=== PATIENT | female | born 1990 | race Caucasian/White ===

== ENCOUNTER 2016-03-23 15:05 | Outpatient (CLI) | payer MEDICAID ==
--- NOTE | 2016-03-23 15:51 | Non Stress Test Report ---
Non Stress Test Datetime Report Generated by CPN: 03/23/2016 15:51 DEMOGRAPHIC EGA NST: 32.1 INDICATION Indication for Study: Ordered by Provider MONITORING Monitor Explained: Monitor Explained; Test Explained; Patient Verbalized Understanding Time on Monitor: 03/23/2016 15:26 Time off Monitor: 03/23/2016 15:50 NST Duration: 24 NST INTERVENTIONS NST Interventions: None Physician Notified NST: A Emmel CNM BABY A: [id number] BABY A Movement : Present Contraction Frequency : none FHR Baseline : 135 Accelerations : 15X15 Decelerations : None Variability : Moderate 6-25bpm NST Review: Meets Criteria for Reactive NST NST Review and Verified By : Genet Torres RN NST Results: Reactive NST COMMENTS NST Comments: See flowsheet for VS NST REPORT Report Trigger: Send Report
[2016-03-23 15:57] LABS: APPEARANCE,URINE CLEAR; BILIRUBIN,URINE NEGATIVE (NEGATIVE); GLUCOSE, URINE NEGATIVE (NEGATIVE); KETONES,URINE NEGATIVE (NEGATIVE); LEUKOCYTE ESTERASE,URINE NEGATIVE (NEGATIVE); NITRITE,URINE NEGATIVE (NEGATIVE); PROTEIN,URINE NEGATIVE (NEGATIVE); URINE SPECIFIC GRAVITY 1.008; UROBILINOGEN,URINE NEGATIVE mg/dL (<2.0)
--- NOTE | 2016-03-23 16:00 | L&D Flow Sheet ---
LD Flowsheet Datetime Report Generated by CPN: 03/23/2016 16:00 Datetime: 03/23/2016 15:40 Patient Care Comments: Wet Prep Obtained. (Alvino Alyssa, RN) Datetime: 03/23/2016 15:30 Pain Pain Scale: 0 (Alvino Alyssa, RN) Pain Presence: None/Denies (Alvino Alyssa, RN) Vaginal Exam Vaginal Bleeding: None (Alvino Alyssa, RN) Maternal Assessment Level of Consciousness: Fully Conscious (Alvino Alyssa, RN) DTR's/Clonus: DTRs 2+; No Clonus (Alvino Alyssa, RN) Headache: Denies (Alvino Alyssa, RN) Breath Sounds, Left: Clear and Equal (Alvino Alyssa, RN) Breath Sounds, Right: Clear and Equal (Alvino Alyssa, RN) Nausea/Vomiting: Denies (Alvino Alyssa, RN) RUQ Epigastric Pain: Denies (Alvino Alyssa, RN) Patient Care Patient Position/Activity: Left Tilt (Alvino Shah RN) Comfort Measures: Patient coloring, no distress noted, no complaints. (Alvino Shah RN) I/O Interventions: Clear Liquids Given; Up to BR (Alvino Shah RN) Teaching Instructional Method: Demo; Verbal; Patient Instructed; Family/Support Person Instructed; Verbalized Understanding (Alvino Shah RN) Plan of Care: Plan of Care Discussed (Alvino Shah RN) Unit Routine: [place] to Room; Call Mckenzie; Bed; Visiting Policy; Waiting Areas; Security; Phone/Cell Phone Use; Unit Personnel; Handwashing; Monitoring; Safety/Fall Risk Prevention; Bathroom Privileges (Alvino Shah RN) Pain Management: Pain Scale/Goals; Comfort Measures (Alvino Shah RN) PTL/PROM: PTL Stimulating Activities; Hydration; Signs/Symptoms of Infection (Alvino Shah RN) Related: Common Discomforts of ; Maternal Physical Changes; Maternal Emotional Changes; Nutrition; Hydration; Activity and Rest (Alvino Alyssa, RN) Communication LaborFlag: Antepartum (QS system process) Datetime: 03/23/2016 15:26 Vital Signs NBP Sys/Kayla/Mean (mmHg): 104 (QS system process) : 59 (QS system process) : 77 (QS system process) Pulse: 103 (QS system process) Communication LaborFlag: Antepartum (QS system process)
[2016-03-23 16:03] LABS: AMNISURE (ROM) NEGATIVE (NEGATIVE)
[2016-03-23 16:13] LABS: URINE BARBITURATES SCREEN NEGATIVE; URINE METHADONE SCREEN NEGATIVE; URINE PHENCYCLIDINE SCREEN NEGATIVE
[2016-03-23 17:30] LABS: CHLAM PCR NOT DETECTED (NOT DETECT)
--- NOTE | 2016-03-24 04:47 | L&D Current Admission ---
Current Admit Datetime Report Generated by [facility]: 03/24/2016 04:45 ADMISSION INFORMATION Chief Complaint: Pt states she has been having lower abdominal cramping "below my hips" that comes and goes. Pt states this has been going on for 2 days. Pt also had a vaginal discharge that looked orange but she had taken Azo. Pt states she come into the ER at 1900 on 01/10 due to a migraine. States according to the internet she is having "cluster migraines". Pt says she has migraines when she is not but not this bad or consistent. Pt also c/o urinary urgency. (01/12/2016 03:48:Divina Orourke RN)
--- NOTE | 2016-03-24 04:47 | L&D General Admission ---
General Admit Datetime Report Generated by CPN: 03/24/2016 04:45 INFORMATION Patient Age: 23 (04/11/2014 12:02:QS system process) EDC: 05/17/2016 00:00 (01/12/2016 03:44:Divina Orourke RN) : 3 (01/12/2016 03:44:Divina Orourke RN) Para: 2 (01/12/2016 03:44:Divina Orourke RN) Term: 2 (01/12/2016 03:44:Divina Orourke RN) : 0 (01/12/2016 03:44:Divina Orourke RN) Spontaneous Abortions: 0 (01/12/2016 03:44:Divina Orourke RN) Induced Abortions: 0 (01/12/2016 03:44:Divina Orourke RN) Livin (01/12/2016 03:44:Divina Orourke RN) Cesareans: 0 (01/12/2016 03:44:Divina Orourke RN) VBACs: 0 (01/12/2016 03:44:Divina Orourke RN) Ectopic: 0 (01/12/2016 03:44:Divina Orourke RN) Multiple Births: 0 (01/12/2016 03:44:Divina Orourke RN) Baby, Number in Womb: 1 (01/12/2016 03:44:Divina Orourke RN) CARE Adequate Care: No (01/12/2016 03:44:Divina Orourke RN) Height (in): 64 (03/23/2016 16:46:QS system process) Height (in): 64 (03/23/2016 15:20:QS system process) Height (in): 63 (01/12/2016 04:07:QS system process) ALLERGIES Medication Allergy: Yes (01/12/2016 03:44:Divina Orourke RN) Medication Allergies: Penicillins (03/23/2016); hydrocodone (03/23/2016); clonazepam (03/23/2016); hydrocortisone/MO/Rash (03/23/2016) (03/23/2016 15:18:QS system process) Medication Allergies: Penicillins (01/12/2016); hydrocodone (01/12/2016); clonazepam (01/12/2016); hydrocortisone/MO/Rash (01/12/2016) (01/12/2016 04:07:QS system process) Medication Allergies: Penicillins (10/15/2015); hydrocodone (10/15/2015); clonazepam (10/15/2015); hydrocortisone/MO/Rash (08/20/2014) (01/12/2016 03:14:QS system process) Medication Allergies: Hydrocortisone/MO/Rash (08/20/2014) (09/19/2014 12:19:QS system process) Medication Allergies: Hydrocortisone/MO/Rash (01/30/2013) (04/11/2014 12:02:QS system process) COMMUNICATION Primary Language: Barbadian (01/12/2016 03:44:Divina Orourke RN) Medical Tx Preferred Language: Barbadian (01/12/2016 03:44:Divina Orourke RN) Communication Barrier(s): None (01/12/2016 03:44:Divina Orourke RN) DEMOGRAPHICS Address: [address] [place] [id number] (01/12/2016 03:14:QS system process) Address: [address] [place] [id number] (04/11/2014 12:02:QS system process) Zipcode: [address] (01/12/2016 03:14:QS system process) Zipcode: [phone] (04/11/2014 12:02:QS system process) Home (03/23/2016 15:05:QS system process) Home (01/12/2016 03:14:QS system process) Home (06/13/2015 18:02:QS system process) Home (04/11/2014 12:02:QS system process) Work (06/13/2015 18:02:QS system process) Work (09/19/2014 12:19:QS system process) SSN: [id number] (04/11/2014 12:02:QS system process) Next of Kin Name: DEO JIMENEZ (04/11/2014 12:02:QS system process) Next of Kin (04/11/2014 12:02:QS system process) Next of Kin Relationship: MO (04/11/2014 12:02:QS system process) Date of : 1990 (04/11/2014 12:02:QS system process) Marital Status: Single (04/11/2014 12:02:QS system process) Sex: Female (04/11/2014 12:02:QS system process) Race: (04/11/2014 12:02:QS system process) Ethnicity: Non- or (04/11/2014 12:02:QS system process) Confucianism: None (04/11/2014 12:02:QS system process) LABS Hemoglobin: 11.6 L (01/12/2016 01:10:QS system process) Hemoglobin: 10.6 L (10/15/2015 02:04:QS system process) Hematocrit: 33.6 L (01/12/2016 01:10:QS system process) Hematocrit: 33.0 L (10/15/2015 02:04:QS system process) MCV: 89 (01/12/2016 01:10:QS system process) MCV: 88 (10/15/2015 02:04:QS system process) HIV Results: NEGATIVE (01/12/2016 04:17:QS system process) Rubella: NEGATIVE NEGATIVE IF LESS THAN OR EQUAL TO 9.99 IU/mL POSITIVE IF GREATER THAN OR EQUAL TO 10.0 IU/mL (01/12/2016 04:17:QS system process) Rubella Titer: 6.13 (01/12/2016 04:17:QS system process)
--- NOTE | 2016-03-24 04:47 | L&D Admission Assessment ---
LD ADM ASMT Datetime Report Generated by CPN: 03/24/2016 04:45 PATIENT ASSESSMENT Assessment Type: Admission Assessment (03/23/2016 15:30:Alvino Shah, RN) WEIGHT Weight (lb): 128 (03/23/2016 16:46:QS system process) Weight (lb): 128 (03/23/2016 15:20:QS system process) Weight (kg): 58.2 (03/23/2016 16:46:QS system process) Weight (kg): 58.2 (03/23/2016 15:20:QS system process) BMI: 22.0 (03/23/2016 16:46:QS system process) BMI: 22.7 (03/23/2016 15:20:QS system process) PAIN Pain Scale: 0 (03/23/2016 15:30:Alvino Alyssa, RN) Pain Presence: None/Denies (03/23/2016 15:30:Alvino Alyssa, RN) CONTRACTIONS Frequency (min): none (03/23/2016 16:00:Alvino Alyssa, RN) Resting Tone [place]: Relaxed (03/23/2016 16:00:Alvino Alyssa, RN) NEURO Level of Consciousness: Fully Conscious (03/23/2016 15:30:Alvino Dasheet, RN) DTR's/Clonus: DTRs 2+; No Clonus (03/23/2016 15:30:Alvino Shah, RN) Headache: Denies (03/23/2016 15:30:Alvino Dasheet, RN) Dizziness: No (03/23/2016 15:30:Alvino Dasheet, RN) Blurred Vision: No (03/23/2016 15:30:Alvino Dasheet, RN) Extremity Numbness/Tingling : None (03/23/2016 15:30:Alvino Dasheet, RN) Extremity Movement: Full Range of Motion (03/23/2016 15:30:Alvino Dasheet, RN) CARDIOVASCULAR Heart Rhythm: Regular (03/23/2016 15:30:Alvino Fragosot, RN) Nailbeds: [place] (03/23/2016 15:30:Alvino Dasheet, RN) Capillary Refill: Less than 3 Seconds (03/23/2016 15:30:Alvino Fragosot, RN) Lower Extremities Edema: None (03/23/2016 15:30:Alvino Dasheet, RN) Lower Extremities Edema Degree: None (03/23/2016 15:30:Alvino Shah, RN) Upper Extremities Edema: None (03/23/2016 15:30:Alvino Shah RN) Upper Extremities Edema Degree: None (03/23/2016 15:30:Alvino Shah RN) Facial Edema: None (03/23/2016 15:30:Alvino Shah RN) Bennie's Sign Left Leg: Negative (03/23/2016 15:30:Alvino Shah RN) Bennie's Sign Right Leg: Negative (03/23/2016 15:30:Alvino Shah RN) DVT RISK ASSESSMENT DVT Risk Age: Age less than 41 years (03/23/2016 15:30:Alvino Shah RN) DVT Risk BMI: BMI<31 (03/23/2016 15:30:Alvino Shah RN) DVT Risk Surgery: None Applicable (03/23/2016 15:30:Alvino Shah RN) DVT Risk Other: Women Only- or (<1 month) (03/23/2016 15:30:Alvino Shah RN) DVT Risk Total: 1 (03/23/2016 15:30:QS system process) DVT Risk Text: Low Risk (<10%) No specific measures, early ambulation (03/23/2016 15:30:QS system process) RESPIRATORY Respiratory Effort: Unlabored; Regular Rhythm; Equal Expansion (03/23/2016 15:30:Alvino Alyssa, RN) Breath Sounds, Left: Clear and Equal (03/23/2016 15:30:Alvino Alyssa, RN) Breath Sounds, Right: Clear and Equal (03/23/2016 15:30:Alvino Alyssa, RN) Cough Productivity: None (03/23/2016 15:30:Alvino Alyssa, RN) GASTROINTESTINAL Nausea/Vomiting: Denies (03/23/2016 15:30:Alvino Alyssa, RN) Bowel Sounds: Normoactive (03/23/2016 15:30:Alvino Alyssa, RN) RUQ Epigastric Pain: Denies (03/23/2016 15:30:Alvino Alyssa, RN) Bowel Patterns: Soft, Formed Stool (03/23/2016 15:30:Alvino Alyssa, RN) Hemorrhoids: None (03/23/2016 15:30:Alvino Alyssa, RN) Diet Type: Regular diet (03/23/2016 15:30:Alvino Alyssa, RN) GENITOURINARY Bladder: Nondistended (03/23/2016 15:30:Alvino Alyssa, RN) Frequency of Urination: No (03/23/2016 15:30:Alvino Alyssa, RN) Urination Burning: No (03/23/2016 15:30:Alvino Alyssa, RN) CVA Tenderness: No (03/23/2016 15:30:Alvino Alyssa, RN) Vaginal Bleeding: None (03/23/2016 15:30:Alvino Alyssa, RN) Vaginal Discharge Amount: None (03/23/2016 15:30:Alvino Alyssa, RN) Vaginal Discharge Color: N/A (03/23/2016 15:30:Alvino Alyssa, RN) Vaginal Discharge Odor: Non-Odorous (03/23/2016 15:30:Alvino Alyssa, RN) Vaginal Discharge Character: None (03/23/2016 15:30:Alvino Alyssa, RN) INTEGUMENTARY Skin Color: Normal for Race (03/23/2016 15:30:Alvino Alyssa, RN) Skin Temperature: Warm (03/23/2016 15:30:Alvino Alyssa, RN) Skin Moisture: Dry (03/23/2016 15:30:Alvino Alyssa, RN) ARON SKIN ASSESSMENT Aron Scale Sensory Perception: No Impairment- Responds to verbal commands. Has no sensory deficit which would limit ability to feel or voice pain or discomfort (03/23/2016 15:30:Alvino Shah RN) Aron Scale Moisture: Rarely Moist- Skin is usually dry. Linen only requires changing at routine intervals (03/23/2016 15:30:Alvino Shah RN) Aron Scale Activity: Walks Frequently- Walks outside the room at least twice a day and inside room at least every 2 hours during the day. (03/23/2016 15:30:Alvino Shah RN) Aron Scale Mobility: No Limitations- Makes major and frequent changes in position without assistance (03/23/2016 15:30:Alvino Shah RN) Aron Scale Nutrition: Excellent- Eats most of every meal. Never refuses a meal. Usually eats a total of 4 or more servings of meat and dairy products. Occasionally eats between meals. Does not require supplementation (03/23/2016 15:30:Alvino Shah RN) Aron Scale Friction and Shear: No Apparent Problem- Moves in bed and in chair independently and has sufficient muscle strength to lift up completely during move. Maintains good position in bed or chair at all times (03/23/2016 15:30:Alvino Shah RN) Aron Scale Total: 23 (03/23/2016 15:30:QS system process) Aron Scale Risk: No Risk of Pressure Ulcer Noted at this Time (03/23/2016 15:30:QS system process) SUPPORT Emotional State: Calm/Relaxed (03/23/2016 15:30:Alvino Alyssa, RN) SAFETY Call Mckenzie Within Reach: Yes (03/23/2016 15:30:Alvino Alyssa, RN) Side Rails Up: Yes (03/23/2016 15:30:Alvino Alyssa, RN) Bed Wheels Locked: Yes (03/23/2016 15:30:Alvino Alyssa, RN) Arm Bands Present: Yes (03/23/2016 15:30:Alvino Alyssa, RN) Isolation: [place] (03/23/2016 15:30:Alvino Alyssa, RN) FALL SCREEN Fall Risk History of Falling: (0) No (03/23/2016 15:30:Alvino Shah RN) Fall Risk Secondary Diagnosis: (0) No (03/23/2016 15:30:Alvino Shah RN) Fall Risk Ambulatory Aid: (0) None/Bedrest/Wheelchair/Nurse Assist (03/23/2016 15:30:Alvino Shah RN) Fall Risk IV Therapy: (0) No (03/23/2016 15:30:Alvino Shah RN) Fall Risk Gait: (0) Normal/Bedrest/Immobile (03/23/2016 15:30:Alvino Shah RN) Fall Risk Mental Status: (0) Oriented to Own Ability (03/23/2016 15:30:Alvino Shah RN) Fall Risk Score: 0 (03/23/2016 15:30:QS system process) Fall Risk Score Definition: No Risk: No action required (03/23/2016 15:30:QS system process) RECENT TRAVEL/INFECTIOUS DISEASE Recent Exp Communicable Disease: No (03/23/2016 15:30:Alvino Shah RN) Cough or Fever: No (03/23/2016 15:30:Alvino Shah RN) Foreign Travel Past 10 Days: No (03/23/2016 15:30:Alvino Shah RN) Open Wounds or Sores: No (03/23/2016 15:30:Alvino Shah RN) Prior Antibiotic Resistance Tx: No (03/23/2016 15:30:Alvino Shah RN) Cultures Obtained: Not Applicable (03/23/2016 15:30:Alvino Shah RN) Isolation Initiated: No (03/23/2016 15:30:Alvino Shah RN) Pt/Family Education: Handwashing Hygiene (03/23/2016 15:30:Alvino Shah RN) BABY A FHR Baseline Rate (bpm) Baby A: 140 (03/23/2016 16:00:Alvino Shah RN) Variability Baby A: Moderate 6-25 bpm (03/23/2016 16:00:Alvino Shah RN) Accelerations Baby A: 15X15 (03/23/2016 16:00:Alvino Shah RN) Decelerations Baby A: None (03/23/2016 16:00:Alvino Shah, RN) ADDITIONAL COMMENTS Assessment Flag: Admission Assessment (03/23/2016 15:30:QS system process)
--- NOTE | 2016-03-24 04:47 | L&D Flow Sheet ---
LD Flowsheet Datetime Report Generated by CPN: 03/24/2016 04:45 Datetime: 03/23/2016 17:41 Comments: FHT 150 (Alvino Shah RN) Provider Reviewed Strip: Yes (Alvino Shah RN) Notification Reason: Status Update; Status; Labor Status; Membrane Status; Lab/Diagnostic Study (Alvino Shah RN) Communication Comments: Dr Glez reviewed Ultrasound and all lab results, care, vs, complaint. Orders to discharge home now. (Alvino Shah RN)
--- NOTE | 2016-03-24 04:47 | Antepartum Discharge Summary ---
Antepartum DC Datetime Report Generated by CPN: 03/24/2016 04:45 DIET/ACTIVITY/RESTRICTIONS Diet: Regular (03/23/2016 17:45:Alvino Alyssa, RN) Activity: Normal Activity (03/23/2016 17:45:Alvino Alyssa, RN) TEACHING/INSTRUCTIONS/REFERRALS Instructions Given To: Pt (03/23/2016 17:45:Alvino Alyssa, RN) Instructions Understood: Patient Verbalized Understanding; Support Person Verbalized Understanding (03/23/2016 17:45:Alvino Shah RN) Referrals: None (03/23/2016 17:45:Alvino Shah RN) Educational Materials- Other: Kick Counts NST (03/23/2016 17:45:Alvino Shah RN) DISCHARGE INFORMATION Discharged AMA: No (03/23/2016 17:45:Alvino Shah RN) Discharge Date/Time: 03/23/2016 17:50 (03/23/2016 17:45:Alvino Shah RN) Discharged To: Home (03/23/2016 17:45:Alvino Shah RN) Discharge Provider Name: Glez (03/23/2016 17:45:Alvino Shah RN) Discharge Method: Ambulatory (03/23/2016 17:45:Alvino Shah RN) Condition: Stable (03/23/2016 17:45:Alvino Shah RN) FOLLOW UP INFORMATION Follow Up With: Health Department (03/23/2016 17:45:Alvino Shah RN) Follow Up On: As Scheduled (03/23/2016 17:45:Alvino Shah RN) Follow Up Phone Number: Health Department - (03/23/2016 17:45:Alvino Shah RN) Comments: Discharged home ambulatory in no distress, understands s/s to report, when to return to hospital, to keep scheduled appt with health department. Advised to discontinue smoking/ drug use in , importance of regular care. Verbalizes understanding. (03/23/2016 17:45:Alvino Shah RN) GENERAL INSTR-CALL PROVIDER IF: Contractions: Contractions or cramps become more frequent than 8 in one hour or 4 in 20 minutes; Regular painful contractions every 5 minutes or less for one hour. Time your contractions from the beginning of one to the beginning of the next (03/23/2016 17:45:Alvino Shah RN) Pressure: Pressure in your vagina or lower abdomen that may feel like the baby is pushing down (03/23/2016 17:45:Alvino Shah RN) Period Like Cramps: Period-like cramps or low dull backache that may come and go (03/23/2016 17:45:Alvino Shah RN) Cramps/Diarrhea: Abdominal cramps that may be accompanied by diarrhea (03/23/2016 17:45:Alvino Shah RN) Gush of Fluid/Blood: Gush of fluid or blood from your vagina (it is normal to have spotting after vaginal exam or intercourse) (03/23/2016 17:45:Alvino Shah RN) Vaginal Discharge: Change in the type or amount of vaginal discharge (03/23/2016 17:45:Alvino Shah RN) Decreased Movement: Your baby is not moving as much as usual- 4 movements in 1 hour after drinking and resting on side (03/23/2016 17:45:Alvino Shah RN) Temperature: Temperature greater than 100.0(F) orally (03/23/2016 17:45:Alvino Shah RN) Hypertension Signs/Symptoms: Severe headache which is not relieved 30 minutes after taking Tylenol(Acetaminophen); Blurry vision or spots before your eyes; Severe heartburn or pain on the upper right side of your abdomen that is not relieved by an antacid; Increased swelling in your face, hands or feet (03/23/2016 17:45:Alvino Shah RN) Urinary Output: Decreased urinary output or dark colored urine (03/23/2016 17:45:Alvino Shah RN) ADDITIONAL INSTRUCTIONS N/V [place]/Crackers: [place] [facility] [place] (03/23/2016 17:45:Alvino Shah RN) N/V Frequent Meals: Eat small frequent meals (03/23/2016 17:45:Alvino Shah RN) N/V Empty Stomach: Try to keep something in your stomach (don't let your stomach get empty) (03/23/2016 17:45:Alvino Shah RN) N/V Time Getting Up: Take your time getting up (03/23/2016 17:45:Alvino Shah RN) N/V Avoid Smells: Avoid smells that make you feel sick (03/23/2016 17:45:Alvino Shah RN) Travel Seatbelts: Wear seatbelts or safety/lap belts (03/23/2016 17:45:Alvino Shah RN) Travel Walk Frequently: Walk frequently, every 1-2 hours (03/23/2016 17:45:Alvino Shah RN) Travel Comfort Clothes: Wear clothing that does not constrict and comfortable shoes (03/23/2016 17:45:Alvino Shah RN) Travel Light Snack: Keep a light snack (e.g. dry crackers) with you at all times to prevent nausea (03/23/2016 17:45:Alvino Shah RN) Travel Hydration: Drink plenty of water, low sodium and noncaffeinated drinks (03/23/2016 17:45:Alvino Shah RN) Travel Medications: DO NOT take any medication that is not approved by your physician first (03/23/2016 17:45:Alvino Shah RN) Travel PN Records: Always keep a copy of your medical record with you just in case (03/23/2016 17:45:Alvino Shah RN) Edema Avoid Standing: Avoid standing for long periods, keep legs up when you can (03/23/2016 17:45:Alvino Shah RN) Edema Rest on Side: When resting, lie on your side (left is best) (03/23/2016 17:45:Alvino Shah RN) Edema Limit Sodium: Limit the amount of salty foods you eat (03/23/2016 17:45:Alvino Shah RN) Edema Support Hose: Try to wear support hose as much as possible (03/23/2016 17:45:Alvino Shah RN) Exercise Overheating: Avoid situations that would cause you to become overheated (03/23/2016 17:45:Alvino Shah RN) Exercise Weather: Exercise outdoors only if the weather is reasonable and not too hot (03/23/2016 17:45:Alvino Shah RN) Exercise Exertion: Do not over exert yourself when you exercise (03/23/2016 17:45:Alvino Shah RN) Exercise Hydration: Drink plenty of fluids, especially water (03/23/2016 17:45:Alvino Shah RN) Exercise Support: Wear good support hose, bra and shoes when exercising (03/23/2016 17:45:Alvino Shah RN) Varicose Veins Instructions: Do not stand for long periods of time (03/23/2016 17:45:Alvino Shah RN) Varicose Veins Elevate Sit: Try to keep your legs elevated when you are sitting (03/23/2016 17:45:Alvino Shah RN) Varicose Veins Elevate Lying: When lying down, keep your legs elevated (03/23/2016 17:45:Alvino Shah RN) Varicise Veins Non Binding: When wearing stockings or socks, make sure they are not too tight and bind your legs (03/23/2016 17:45:Alvino Shah RN) Varicose Veins Support: Wear support hose/stockings at all times (03/23/2016 17:45:Alvino Shah RN) Varicose Veins Periodic Move: If you have a job where you sit a lot, get up periodically and walk around (03/23/2016 17:45:Alvino Shah RN)
--- NOTE | 2016-03-24 04:47 | L&D Discharge Summary ---
OB Discharge Summary Datetime Report Generated by CPN: 03/24/2016 04:45 DISCHARGE DIAGNOSIS Diagnosis/Symptoms: Other Diagnoses/Symptoms Other: Limited Care Gestation: 32.1 Number of Babies in Womb: 1 Parity: 2 DIET/ACTIVITY/RESTRICTIONS Diet: Regular Activity: Normal Activity TEACHING/INSTRUCTIONS/REFERRALS Instructions Given To: Pt Instructions Understood: Patient Verbalized Understanding; Support Person Verbalized Understanding Referrals: None Educational Materials- Other: Kick Counts NST DISCHARGE INFORMATION Discharged AMA: No Discharge Date/Time: 03/23/2016 17:50 Discharged To: Home Discharge Provider Name: Glez Accompanied By: staff Discharge Method: Ambulatory Condition: Stable FOLLOW UP INFORMATION Follow Up With: Health Department Follow Up On: As Scheduled Follow Up Phone Number: Health Department - Comments: Discharged home ambulatory in no distress, understands s/s to report, when to return to hospital, to keep scheduled appt with health department. Advised to discontinue smoking/ drug use in , importance of regular care. Verbalizes understanding. GENERAL INSTR-CALL PROVIDER IF: Contractions: Contractions or cramps become more frequent than 8 in one hour or 4 in 20 minutes; Regular painful contractions every 5 minutes or less for one hour. Time your contractions from the beginning of one to the beginning of the next Pressure: Pressure in your vagina or lower abdomen that may feel like the baby is pushing down Period Like Cramps: Period-like cramps or low dull backache that may come and go Cramps/Diarrhea: Abdominal cramps that may be accompanied by diarrhea Gush of Fluid/Blood: Gush of fluid or blood from your vagina (it is normal to have spotting after vaginal exam or intercourse) Vaginal Discharge: Change in the type or amount of vaginal discharge Decreased Movement: Your baby is not moving as much as usual- 4 movements in 1 hour after drinking and resting on side Temperature: Temperature greater than 100.0(F) orally
== END 2016-03-23 17:49 | disposition home or self-care (01) ==
LOC: LC 15:05
PROVIDERS: ATTEND Obstetrics & Gynecology
PROC: 4A1HXCZ Monitoring of Products of Conception, Cardiac Rate, External Approach (ICD-10-PCS; principal; 2016-03-23)
DX: O09.33 Supervision of pregnancy with insufficient antenatal care, third trimester (principal); Z3A.32 32 weeks gestation of pregnancy
CPT/HCPCS: 59025; 84112; 87210; 81005; 87491; 87591; 76805; G0479; G0480 ×4; 36415; 80307

== ENCOUNTER 2016-05-05 15:43 | Outpatient (CLI) | payer MEDICAID ==
--- NOTE | 2016-05-05 16:08 | ER Document Report ---
ED Medical Screen (RME) - General Stated Complaint: COUGH Notes: patient is a 25 year old female referred over for low HR without contractions with a runny nose and dry cough she is 39 weeks and was referred upstairs but L&D refused to take the patient upstairs until she has a negative strep and influenza screen patient received a flu vaccine this year and denies a sore throat I have greeted and performed a rapid initial assessment of this patient. A comprehensive ED assessment and evaluation of the patient, analysis of test results and completion of the medical decision making process will be conducted by additional ED providers. TRAVEL OUTSIDE OF THE [place] IN LAST 30 DAYS: No - Related Data Allergies/Adverse Reactions: hydrocortisone [Hydrocortisone] Allergy (Intermediate, Verified 03/23/16 15:18) Rash hydrocodone Allergy (Verified 03/23/16 15:18) Penicillins Allergy (Verified 03/23/16 15:18) clonazepam [From Klonopin] Adverse Reaction (Verified 03/23/16 15:18) hydrocortisone Allergy (Uncoded 03/23/16 15:17) Past Medical History Renal/ Medical History: Denies: Hx Ovarian Cysts, Hx Pelvic Inflammatory Disease Malignancy Medical History: Denies: Hx Cervical Cancer, Hx Ovarian Cancer GI Medical History: Reports: Hx Irritable Bowel Psychiatric Medical History: Reports: Hx Attention Deficit Hyperactivity Disorder, Hx Depression - Immunizations Immunizations up to date: Yes Hx Diphtheria, Pertussis, Tetanus Vaccination: Yes
--- NOTE | 2016-05-05 17:26 | Non Stress Test Report ---
Non Stress Test Datetime Report Generated by CPN: 05/05/2016 17:26 DEMOGRAPHIC EGA NST: 38.2 INDICATION Indication for Study: Ordered by Provider VITAL SIGNS Temperature - NST: 98.1 Pulse - NST: 91 RESP - NST: 16 NBPSYS NST: 92 NBPDIA NST: 62 MONITORING Monitor Explained: Monitor Explained; Test Explained; Patient Verbalized Understanding Time on Monitor: 05/05/2016 16:36 Time off Monitor: 05/05/2016 17:22 NST Duration: 46 NST INTERVENTIONS NST Interventions: PO Hydration; Vibroacoustic Stim Physician Notified NST: Dr. Glez BABY A: [id number] BABY A Movement : Present Contraction Frequency : none FHR Baseline : 145 Accelerations : 15X15 Decelerations : None Variability : Moderate 6-25bpm NST Review: Meets Criteria for Reactive NST NST Results: Reactive NST REPORT Report Trigger: Send Report
== END 2016-05-05 17:29 | disposition home or self-care (01) ==
LOC: ER 15:43 → LC 15:43 → EDSTATUS 16:21 → LC 17:29
PROVIDERS: ATTEND Obstetrics & Gynecology
PROC: 4A1HXCZ Monitoring of Products of Conception, Cardiac Rate, External Approach (ICD-10-PCS; principal; 2016-05-05)
DX: Z34.93 Encounter for supervision of normal pregnancy, unspecified, third trimester (principal); Z3A.38 38 weeks gestation of pregnancy
CPT/HCPCS: 59025; 87070; 87804; 87880

== ENCOUNTER 2016-05-13 07:15 | Inpatient (IN) | payer MEDICAID ==
[2016-05-13] MEDS ORDERED: OXYTOCIN/NORMAL SALINE 1,000 ML IV PRN ×3 (07:29→13:32)
[2016-05-13] MEDS ORDERED: RINGERS SOLUTION,LACTATED 300 ML IV ONE (07:29)
--- NOTE | 2016-05-13 08:01 | L&D Flow Sheet ---
LD Flowsheet Datetime Report Generated by CPN: 05/13/2016 08:00 Datetime: 05/13/2016 07:54 Communication Communication Comments: Orders to start Pitocin and increase every 15 minutes per protocol per Dr. Hodges. Pt cervical exam 2-3/[address] Hodges yesterday in office (Patricia Dread, RN) Datetime: 05/13/2016 07:46 Pain Pain Scale: 0 (Patricia Canada, RN) Pain Presence: None/Denies (Patricia Canada, RN) Pain Type: N/A (Patricia Canada, RN) Vaginal Exam Vaginal Bleeding: Normal Show (Patricia Canada, RN) Maternal Assessment Level of Consciousness: Fully Conscious (Patricia Canada, RN) DTR's/Clonus: DTRs 2+; No Clonus (Patricia Canada, RN) Headache: Denies (Patricia Canada, RN) Breath Sounds, Left: Clear and Equal (Patricia Canada, RN) Breath Sounds, Right: Clear and Equal (Patricia Canada, RN) Nausea/Vomiting: Denies (Patricia Canada, RN) RUQ Epigastric Pain: Denies (Patricia Canada, RN) Teaching Instructional Method: Verbal; Patient Instructed; Family/Support Person Instructed; Verbalized Understanding (Patricia Canada RN) Plan of Care: Plan of Care Discussed; Vaginal Delivery; Labor; Induction (Patricia Canada RN) Unit Routine: [place] to Room; Call [place]; Bed; Waiting Areas; Handwashing; Monitoring; IV Pumps; Bathroom Privileges (Patricia Canada RN) LaborFlag: Antepartum (QS system process) Datetime: 05/13/2016 07:38 Vital Signs NBP Sys/Kayla/Mean (mmHg): 103 (QS system process) : 60 (QS system process) : 75 (QS system process) Pulse: 80 (QS system process) LaborFlag: Antepartum (QS system process)
[2016-05-13] MEDS ORDERED: OXYTOCIN/NORMAL SALINE 0 UNIT/0 ML RTUINJ ONE (08:03)
[2016-05-13 08:07] LABS: APPEARANCE,URINE CLOUDY; BILIRUBIN,URINE NEGATIVE (NEGATIVE); GLUCOSE, URINE NEGATIVE (NEGATIVE); KETONES,URINE NEGATIVE (NEGATIVE); LEUKOCYTE ESTERASE,URINE SMALL (NEGATIVE); NITRITE,URINE NEGATIVE (NEGATIVE); PROTEIN,URINE NEGATIVE (NEGATIVE); URINE SPECIFIC GRAVITY 1.023
[2016-05-13] MEDS: RINGERS SOLUTION,LACTATED 1,000 ML IV PRN ×2 (08:20→20:28)
[2016-05-13 08:23] LABS: ABSOLUTE EOSINOPHILS # (AUTO) 0.1 10^3/uL (0.0-0.6); ABSOLUTE LYMPHOCYTES (AUTO) 1.9 10^3/uL (0.5-4.7); ABSOLUTE MONOCYTES (AUTO) 0.5 10^3/uL (0.1-1.4); BASOPHILS % (AUTO) 0.4 % (0-2); EOSINOPHILS % (AUTO) 2.3 % (0-6); HEMATOCRIT 26.3 % (36.0-47.0); HEMOGLOBIN 8.5 g/dL (12.0-15.5); HGB HCT DIFFERENCE -0.8; LYMPHOCYTES % (AUTO) 34.3 % (13-45); MEAN CORPUSCULAR HEMOGLOBIN 24.3 pg (27.0-33.4); MEAN CORPUSCULAR HGB CONC 32.4 g/dL (32.0-36.0); MEAN CORPUSCULAR VOLUME 75 fl (80-97); MONOCYTES % (AUTO) 9.8 % (3-13); RED CELL DISTRIBUTION WIDTH 19.2 % (11.5-14.0); SEGMENTED NEUTROPHILS % (AUTO) 53.2 % (42-78); WHITE BLOOD COUNT 5.6 10^3/uL (4.0-10.5)
[2016-05-13 09:05] LABS: URINE BARBITURATES SCREEN NEGATIVE; URINE METHADONE SCREEN NEGATIVE; URINE OPIATES LOW NEGATIVE; URINE PHENCYCLIDINE SCREEN NEGATIVE
--- NOTE | 2016-05-13 10:01 | L&D Flow Sheet ---
LD Flowsheet Datetime Report Generated by CPN: 05/13/2016 10:00 Datetime: 05/13/2016 09:49 Monitor Interventions for UA: [place] Adjusted (Patricia Canada, RN) Datetime: 05/13/2016 09:48 NBP Sys/Kayla/Mean (mmHg): 115 (QS system process) : 56 (QS system process) : 81 (QS system process) Pulse: 77 (QS system process) LaborFlag: Labor (QS system process) Datetime: 05/13/2016 09:45 Monitor Mode: External (Patricia Canada RN) Frequency (min): 2-4 (Patricia Canada RN) Quality: Mild/Moderate (Patricia Canada RN) Duration (sec): 60-90 (Patricia Canada RN) Duration Criteria: Less than Two 120 Second Contractions (Patricia Canada RN) Pattern: Normal: <= 5 Contractions in 10 Minutes (Patricia Canada RN) Resting Tone (Palpate): Relaxed (Patricia Canada RN) Monitor Mode: External US (Patricia Canada RN) FHR Baseline Rate : 125 (Patricia Canada, RN) Variability: Moderate 6-25 bpm (Patricia Canada, RN) Accelerations: 15X15 (Patricia Canada, RN) Decelerations: None (Patricia Canada, RN) Pitocin (milliunit): Pitocin Increased to (milliunits) @ 12 (Patricia Canada RN) Datetime: 05/13/2016 09:32 NBP Sys/Kayla/Mean (mmHg): 95 (QS system process) : 52 (QS system process) : 65 (QS system process) Pulse: 75 (QS system process) LaborFlag: Labor (QS system process) Datetime: 05/13/2016 09:30 Monitor Mode: External (Patricia Canada RN) Frequency (min): 2-4 (Patricia Canada RN) Quality: Mild/Moderate (Patricia Canada RN) Duration (sec): 60-90 (Patricia Canada RN) Resting Tone (Palpate): Relaxed (Patricia Canada RN) Monitor Mode: External US (Patricia Canada RN) FHR Baseline Rate : 125 (Patricia Canada RN) Variability: Moderate 6-25 bpm (Patricia Canada RN) Accelerations: 15X15 (Patricia Canada RN) Decelerations: None (Patricia Canada RN) Pitocin (milliunit): Pitocin Increased to (milliunits) @ 10 (Patricia Canada RN) Datetime: 05/13/2016 09:18 NBP Sys/Kayla/Mean (mmHg): 106 (QS system process) : 63 (QS system process) : 78 (QS system process) Pulse: 74 (QS system process) LaborFlag: Labor (QS system process) Datetime: 05/13/2016 09:15 Monitor Mode: External (Patricia Canada RN) Frequency (min): 2-4 (Patricia Canada RN) Quality: Mild/Moderate (Patricia Canada RN) Duration (sec): 60-90 (Patricia Canada RN) Resting Tone (Palpate): Relaxed (Patricia Canada RN) Monitor Mode: External US (Patricia Canada RN) FHR Baseline Rate : 135 (Patricia Canada RN) Variability: Moderate 6-25 bpm (Patricia Canada RN) Accelerations: 15X15 (Patricia Canada, RN) Decelerations: None (Patricia Canada, RN) Pitocin (milliunit): Pitocin Increased to (milliunits) @ 8 (Patricia Canada RN) Datetime: 05/13/2016 09:02 NBP Sys/Kayla/Mean (mmHg): 106 (QS system process) : 57 (QS system process) : 79 (QS system process) Pulse: 84 (QS system process) LaborFlag: Labor (QS system process) Datetime: 05/13/2016 09:00 Monitor Mode: External (Patricia Canada, RN) Frequency (min): 2-5 (Patricia Dread, RN) Quality: Mild (Patricia Canada, RN) Duration (sec): 60-120 (Patricia Dread, RN) Duration Criteria: Less than Two 120 Second Contractions (Patricia Dread, RN) Pattern: Normal: <= 5 Contractions in 10 Minutes (Patricia Canada, RN) Resting Tone (Palpate): Relaxed (Patricia Canada, RN) Monitor Mode: External US (Patricia Canada, RN) FHR Baseline Rate : 140 (Patricia Canada, RN) Variability: Moderate 6-25 bpm (Patricia Canada, RN) Accelerations: 15X15 (Patricia Canada, RN) Decelerations: None (Patricia Dread, RN) Pitocin (milliunit): Pitocin Increased to (milliunits) @ 6 (Patricia Canada, RN) Datetime: 05/13/2016 08:45 Monitor Mode: External (Patricia Canada, RN) Frequency (min): 3-6 (Patricia Canada, RN) Quality: Mild (Patricia Canada, RN) Duration (sec): 60-120 (Patricia Canada RN) Duration Criteria: Less than Two 120 Second Contractions (Patricia Canada RN) Pattern: Normal: <= 5 Contractions in 10 Minutes (Patricia Canada RN) Resting Tone (Palpate): Relaxed (Patricia Canada RN) Monitor Mode: External US (Patricia Canada RN) FHR Baseline Rate : 145 (Patricia Canada RN) Variability: Moderate 6-25 bpm (Patricia Canada RN) Accelerations: 15X15 (Patricia Canada RN) Decelerations: None (Patricia Canada RN) Pitocin (milliunit): Pitocin Increased to (milliunits) @ 4 (Patricia Canada RN) Datetime: 05/13/2016 08:35 Dilatation (cm): 3.0 (Patricia Canada RN) Effacement (%): 80 (Patricia Canada RN) Station: -1 (Patricia Canada RN) Exam by: Marysol Ocasio CNM (Patricia Canada RN) Membrane Status: Ruptured (Patricia Canada RN) Membranes Rupture Method: Artificial (Patricia Canada RN) Amniotic Fluid Color: Clear (Patricia Canada RN) Amniotic Fluid Amount: Moderate (Patricia Canada RN) Datetime: 05/13/2016 08:33 Communication Comments: Marysol Ocasio CNM at bedside (Patricia Canada, RN) Datetime: 05/13/2016 08:30 Monitor Mode: External (Patricia Canada, RN) Frequency (min): x1 (Patricia Canada, RN) Quality: Mild (Patricia Canada, RN) Duration (sec): 110 (Patricia Canada, RN) Duration Criteria: Less than Two 120 Second Contractions (Patricia Canada, RN) Pattern: Normal: <= 5 Contractions in 10 Minutes (Patricia Canada, RN) Resting Tone (Palpate): Relaxed (Patricia Canada, RN) Monitor Mode: External US (Patricia Canada, RN) FHR Baseline Rate : 125 (Patricia Canada, RN) Variability: Moderate 6-25 bpm (Patricia Canada, RN) Accelerations: 15X15 (Patricia Canada, RN) Decelerations: None (Patricia Canada, RN) Pitocin (milliunit): Pitocin Remains (milliunits) @ 2 (Patricia Canada, RN) Datetime: 05/13/2016 08:20 Pitocin (milliunit): Pitocin Started (milliunits) @ 2; Pitocin 20 Units in 1000ml NS (Patricia Canada, RN) Datetime: 05/13/2016 08:15 Procedures: Consents Signed (Patricia Canada, RN) Datetime: 05/13/2016 08:12 Bedside Blood Glucose: 94 (QS system process) LaborFlag: Labor (QS system process) Datetime: 05/13/2016 08:09 Procedures: Labs Drawn (Patricia Canada, RN) Datetime: 05/13/2016 08:05 IV/Blood Work: IV Bolus Given ml @ 300 (Olamide Sam, RNC) Datetime: 05/13/2016 08:02 IV/Blood Work: IV Started; IV Bolus Started (Olamide Sam, RNC) Datetime: 05/13/2016 08:00 Monitor Mode: External (Patricia Canada RN) Frequency (min): x1 (Patricia Canada RN) Quality: Mild (Patricia Canada RN) Duration (sec): 70 (Patricia Canada RN) Resting Tone (Palpate): Relaxed (Patricia Canada RN) Monitor Mode: External US (Patricia Canada RN) FHR Baseline Rate : 130 (Patricia Canada RN) Variability: Moderate 6-25 bpm (Patricia Canada RN) Accelerations: 15X15 (Patricia Canada RN) Decelerations: None (Patricia Canada RN)
[2016-05-13] MEDS ORDERED: EPHEDRINE SULFATE INJ 50 MG/1 ML AMPULE ONE (10:09)
[2016-05-13] MEDS ORDERED: BUPIVACAINE HCL 0.25 % INJ/PF (2.5 MG/1 ML) 30 ML VIAL ONE (10:09)
[2016-05-13] MEDS ORDERED: FENTANYL/BUPIVACAINE/NS/PF 200 MCG/100 ML RTUINJ EPI ONE (10:09)
[2016-05-13] MEDS ORDERED: LIDOCAINE 1% INJ-PF (10 MG/ML) 30 ML SDV ONE (10:21)
[2016-05-13] MEDS ORDERED: MISOPROSTOL 0.2 MG TABLET ONE (10:21)
[2016-05-13] MEDS ORDERED: OXYTOCIN/NORMAL SALINE 20 UNIT/1,000 ML RTUINJ ONE ×2 (10:22→11:56)
[2016-05-13] MEDS ORDERED: SUCCINYLCHOLINE CHLORIDE INJ 200 MG/10 ML VIAL ONE (11:27)
[2016-05-13] MEDS ORDERED: LIDOCAINE 2% INJ-PF (20 MG/ML) 10 ML AMPUL ONE ×2 (11:48→11:56)
[2016-05-13] MEDS ORDERED: OXYTOCIN 10 UNIT/ML VIAL ONE ×2 (11:56→13:32)
[2016-05-13] MEDS ORDERED: CEFAZOLIN INJ 1 GM VIAL ONE (11:58)
--- NOTE | 2016-05-13 12:01 | L&D Flow Sheet ---
LD Flowsheet Datetime Report Generated by CPN: 05/13/2016 12:00 Datetime: 05/13/2016 11:48 Pushing: Pt States too Tired to Push (Patricia Canada, RN) Pushing Position: Pushing with Contractions (Patricia Canada, RN) Pushing Progress: Ineffective Pushing (Patricia Canada, RN) Datetime: 05/13/2016 11:45 Stage 2 Comments: [place] applied (Patricia Canada, RN) Datetime: 05/13/2016 11:35 Pitocin (milliunit): Pitocin Started (milliunits) @ 12 (Patricia Canada, RN) Medication Comments: Restarted Pitocin per A Emmel CNM (Patricia Canada, RN) Datetime: 05/13/2016 11:34 NBP Sys/Kayla/Mean (mmHg): 135 (QS system process) : 71 (QS system process) : 97 (QS system process) Pulse: 116 (QS system process) I/O Interventions: Luque Discontinued (Patricia Canada, RN) LaborFlag: Labor (QS system process) Datetime: 05/13/2016 11:32 Preparation for Delivery: Setup for Delivery (Patricia Canada, RN) Datetime: 05/13/2016 11:28 Patient Position/Activity: Right Lateral (Patricia Canada, RN) Datetime: 05/13/2016 11:24 NBP Sys/Kayla/Mean (mmHg): 109 (QS system process) : 66 (QS system process) : 83 (QS system process) Pulse: 82 (QS system process) Patient Care Comments: Fluid returned to 125ml/hr (Patriciajuanita Canada, RN) LaborFlag: Labor (QS system process) Datetime: 05/13/2016 11:23 Actions for Decelerations: Oxygen Applied (Patricia Canada, RN) Datetime: 05/13/2016 11:21 Monitor Interventions for FHR: FSE Applied (Patricia Canada, RN) Datetime: 05/13/2016 11:20 Patient Position/Activity: Left Lateral (Patricia Canada, RN) Datetime: 05/13/2016 11:19 NBP Sys/Kayla/Mean (mmHg): 111 (QS system process) : 64 (QS system process) : 82 (QS system process) Pulse: 86 (QS system process) Pitocin (milliunit): Pitocin Discontinued (Patricia Canada RN) LaborFlag: Labor (QS system process) Datetime: 05/13/2016 11:17 Dilatation (cm): 6.5 (Patricia Canada RN) Effacement (%): 80 (Patricia Canada RN) Station: -1 (Patricia Canada RN) Exam by: Marysol Ocasio CNM (Patricia Canada RN) Communication Comments: Marysol Ocasio CNM at bedside (Patricia Canada RN) Datetime: 05/13/2016 11:15 NBP Sys/Kayla/Mean (mmHg): 112 (QS system process) : 64 (QS system process) : 82 (QS system process) Pulse: 79 (QS system process) Patient Position/Activity: Right Lateral (Patricia Canada RN) LaborFlag: Labor (QS system process) Datetime: 05/13/2016 11:13 Anesthesia Interventions Other: Ephedrine (Patricia Canada, RN) Datetime: 05/13/2016 11:12 Patient Position/Activity: Left Lateral (Patricia Canada, RN) Datetime: 05/13/2016 11:10 NBP Sys/Kayla/Mean (mmHg): 103 (QS system process) : 57 (QS system process) : 75 (QS system process) Pulse: 80 (QS system process) LaborFlag: Labor (QS system process) Datetime: 05/13/2016 11:07 I/O Interventions: Luque Cath Inserted (Patricia Canada, RN) Datetime: 05/13/2016 11:04 NBP Sys/Kayla/Mean (mmHg): 111 (QS system process) : 58 (QS system process) : 80 (QS system process) Pulse: 88 (QS system process) LaborFlag: Labor (QS system process) Datetime: 05/13/2016 11:03 NBP Sys/Kayla/Mean (mmHg): 113 (QS system process) : 56 (QS system process) : 79 (QS system process) Pulse: 86 (QS system process) LaborFlag: Labor (QS system process) Datetime: 05/13/2016 11:00 NBP Sys/Kayla/Mean (mmHg): 102 (QS system process) : 58 (QS system process) : 78 (QS system process) Pulse: 88 (QS system process) LaborFlag: Labor (QS system process) Datetime: 05/13/2016 10:59 NBP Sys/Kayla/Mean (mmHg): 106 (QS system process) : 64 (QS system process) : 79 (QS system process) Pulse: 84 (QS system process) LaborFlag: Labor (QS system process) Datetime: 05/13/2016 10:58 Pulse: 95 (QS system process) SpO2 (%): 100 (QS system process) LaborFlag: Labor (QS system process) Datetime: 05/13/2016 10:57 NBP Sys/Kayla/Mean (mmHg): 116 (QS system process) : 81 (QS system process) : 95 (QS system process) Pulse: 96 (QS system process) Epidural Procedure: Cath Placed (Patricia Canada RN) Epidural Procedure: Test Dose (Patricia Canada RN) LaborFlag: Labor (QS system process) Datetime: 05/13/2016 10:53 Pulse: 71 (QS system process) SpO2 (%): 96 (QS system process) LaborFlag: Labor (QS system process) Datetime: 05/13/2016 10:49 Procedure Verify: Correct Patient Identity; Correct Side and Site are Marked; Accurate Procedure Consent Form; Agreement on Procedure to be Done; Correct Patient Position (Patricia Canada RN) Epidural Positioning: Sitting (Patricia Canada RN) Anesthesia Comments: Dr Fernandez at bedside (Patricia Canada RN) Datetime: 05/13/2016 10:48 NBP Sys/Kayla/Mean (mmHg): 110 (QS system process) : 64 (QS system process) : 81 (QS system process) Pulse: 81 (QS system process) Pulse: 83 (QS system process) SpO2 (%): 100 (QS system process) LaborFlag: Labor (QS system process) Datetime: 05/13/2016 10:45 Pitocin (milliunit): Pitocin Remains (milliunits) @ 12 (Patricia Canada, RN) Datetime: 05/13/2016 10:43 Procedure Verify: Correct Patient Identity; Correct Side and Site are Marked; Accurate Procedure Consent Form; Agreement on Procedure to be Done; Correct Patient Position (Patriciajuanita Canada, RN) Epidural Positioning: Sitting (Patricia Canada, RN) Datetime: 05/13/2016 10:33 NBP Sys/Kayla/Mean (mmHg): 123 (QS system process) : 60 (QS system process) : 87 (QS system process) Pulse: 82 (QS system process) LaborFlag: Labor (QS system process) Datetime: 05/13/2016 10:30 Pitocin (milliunit): Pitocin Remains (milliunits) @ 12 (Patricia Canada, RN) Datetime: 05/13/2016 10:24 IV/Blood Work: New IV Bag Hung (Patricia Canada, RN) Datetime: 05/13/2016 10:15 Pitocin (milliunit): Pitocin Remains (milliunits) @ 12 (Patricia Canada, RN) Datetime: 05/13/2016 10:03 NBP Sys/Kayla/Mean (mmHg): 92 (QS system process) : 53 (QS system process) : 69 (QS system process) Pulse: 78 (QS system process) LaborFlag: Labor (QS system process) Datetime: 05/13/2016 10:01 Pain Presence: Intermittent (Patricia Canada RN) Pain Type: Contraction (Patricia Canada RN) Pain Location: Abdomen; Back (Patricia Canada RN) Pain Coping: Breathing Through Contractions; Requesting Pain Medication or Epidural; Crying (Patricia Canada RN) IV/Blood Work: IV Bolus Started (Patricia Canada RN) Comfort Measures: Breathing/Relaxation (Patricia Canada RN) Procedure Verify: Correct Patient Identity; Correct Side and Site are Marked; Accurate Procedure Consent Form; Agreement on Procedure to be Done (Patricia Canada RN) Anesthesia Plans: Epidural (Patricia Canada RN) LaborFlag: Labor (QS system process) Datetime: 05/13/2016 10:00 Pitocin (milliunit): Pitocin Remains (milliunits) @ 12 (Patricia Canada RN)
[2016-05-13] MEDS ORDERED: PROMETHAZINE HCL INJ 25 MG/1 ML VIAL IV PRN (13:32)
[2016-05-13] MEDS ORDERED: ONDANSETRON HCL INJ/PF 4 MG/2 ML SDV ONE (13:32)
[2016-05-13] MEDS ORDERED: ACETAMINOPHEN 100 ML IV PRN (13:32)
[2016-05-13] MEDS ORDERED: SIMETHICONE 80 MG TAB.CHEW PO PRN (13:32)
[2016-05-13] MEDS ORDERED: MEASLES,MUMPS&RUBELLA VACC/PF 0.5 ML VIAL SUBCUT PRN (13:32)
[2016-05-13] MEDS ORDERED: ACETAMINOPHEN 325 MG TABLET PO PRN (13:32)
[2016-05-13] MEDS ORDERED: DIPH/PERTUSS(ACELL)/TETANUS VAC/PF 0.5 ML SYR (>=10YO) IM PRN (13:32)
[2016-05-13] MEDS ORDERED: FENTANYL CITRATE INJ/PF 100 MCG/2 ML AMPUL ONE (13:57)
[2016-05-13] MEDS ORDERED: HYDROMORPHONE HCL 30 MG/60 ML RTUINJ IV PRN (14:06)
[2016-05-13] MEDS ORDERED: HYDROMORPHONE HCL INJ/PF 2 MG/ML AMPULE ONE ×2 (14:12→17:20)
[2016-05-13] MEDS: KETOROLAC TROMETHAMINE INJ/PF 30 MG/1 ML SDV IV SCH ×2 (15:11→21:44)
--- NOTE | 2016-05-13 16:04 | Admission Physical ---
Datetime Report Generated by CPN: 05/13/2016 16:04 CURRENT ADMISSION Indication for Induction: Maternal Diabetes Admit Plan: Admit to Unit; Initiate Labor Protocol ALLERGIES Medication Allergies: Yes Medication Allergies: hydrocodone (05/13/2016); clonazepam (05/13/2016); hydrocortisone/MO/Rash (05/13/2016) Latex: No Latex Allergies OBSTETRICAL HISTORY EDC: 05/13/2016 00:00 : 3 Para: 2 Term: 2 : 0 SAB: 0 IAB: 0 Ectopic: 0 Livin Cesareans: 0 VBACs: 0 Multiple Births: 0 Gestational Diabetes: Yes Rh Sensitization: No Incompetent Cervix: No PATRICK: No Infertility: No ART Treatment: No Uterine Anomaly: No IUGR: No Hx Previous C/S: No Macrosomia: No Hx Loss/Stillborn: No PIH: No Hx : No Placenta Previa/Abruption: No Depression/PP Depression: Yes PTL/PROM: No Post Hemorrhage: No Current Procedures: Ultrasound; NST Obstetrical History Comments: G1: 07/2008, G2: 01/2013 G3: current, GDM SEE RECORDS Alcohol: No Marijuana : No Cocaine: No Other Illicit Drugs: Yes Illicit Drug Comments: 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 Heart Disease: No Hosp/Surgery: Yes Autoimmune Disorder: No Anesthetic Complications: No Kidney Disease: No Abnormal Pap Smear: Yes Neuro/Epilepsy: No Psychiatric Disorders: No Other Medical Diseases: No Hepatitis/Liver Disease: No Significant Family History: No Varicosities/Phlebitis: No Trauma/Violence : No Thyroid Dysfunction: No Medical History Comments: LEEP 2011, drug abuse summer 2015 (adderall, xanax, street drugs), depression, anxiety off meds in August 2015, former smoker INFECTIOUS HISTORY Gonorrhea: Yes Genital Herpes: No Chlamydia: Yes Tuberculosis: No Syphilis: No Hepatitis: No HIV/AIDS Exposure: No Rash or Viral Illness: No HPV: Yes Infectious History Comments: GC and Chlamydia treated during this ([facility] 03/23/16 negative), HPV 2011 PHYSICAL EXAM General: Normal HEENT: Normal Neurologic: Normal Thyroid: Normal Heart: Normal Lungs: Normal Breast: Normal Back: Normal Abdomen: Normal Genitourinary Exam: Normal Extremities: Normal DTRs: Normal Pelvic Type: Adequate Vital Signs: Reviewed VAGINAL EXAM Dilatation: 3 Effacement: 80 Station: -1 MEMBRANES Membranes: Ruptured Amniotic Fluid Color: Clear FETUS A Monitoring: External US Decelerations: None Presentation: Vertex Admit Comment: 25 yo admitted for induction of labor EDC 05/13/16 EGA 40 weeks pt with drug abuse clean x 4 months- adderall, xanax and street drugs extensive psychosocial history- unsure of baby's father smoker depression/ anxiety CF carrier abnormal pap- LEEP 2011 abdomen nontender FHTs 130s and reactive efw 7lbs 4 oz cvx- 3/80/-1 arom clear pitocin initiated pain management- epidural reviewed plan of care anticipate PLANS FOR LABOR AND DELIVERY Labor and Delivery: None Pain Management: Epidural Feeding Preference: Breast Benefit of Breast Feed Discussed: Yes Circumcision: Yes INFORMED CONSENT Informed Consent Obtained: Vaginal Delivery; Induction of Labor; Risks, Benefits and Alternatives Discussed Assignment: Lilly Hodges MD Signature: with User ID: [email or web address] : with User ID: [email or web address]
--- NOTE | 2016-05-13 16:15 | Delivery Summary ---
Del Sum A-C Datetime Report Generated by CPN: 05/13/2016 16:14 ADMISSION DATA Indication for Induction: Maternal Diabetes Admission Impression: Term, Intrauterine Admit Provider Comments: 25 yo admitted for induction of labor EDC 05/13/16 EGA 40 weeks pt with drug abuse clean x 4 months- adderall, xanax and street drugs extensive psychosocial history- unsure of baby's father smoker depression/ anxiety CF carrier abnormal pap- LEEP 2011 abdomen nontender FHTs 130s and reactive efw 7lbs 4 oz cvx- 3/80/-1 arom clear pitocin initiated pain management- epidural reviewed plan of care anticipate DELIVERY PERSONNEL Delivery Doctor:: Lilly Hodges MD Anesthesiologist:: Bernardo Fernandez MD WELDING MANAGER:: Dominic See CRNA Labor and Delivery Nurse:: Patricia Canada RNhose mender Nurse:: Ashlyn Torres RN At Home Independent Call Center Agent:: Olamide Vargas RN Neonatal Nurse Practitioner:: ANAND Abraham Nursery Nurse:: Jeri Asif RN Student Observers:: Brittney Robbins, Designer Architect Student Kevin Brandon, Student Nurse Is/It Project Manager/HANGAR ATTENDANT: Anabella Hansen, [facility] Is/It Project Manager/HANGAR ATTENDANT: ST Sean MATERNAL INFORMATION Delivery Anesthesia: General Medications After Delivery: Pitocin Bolus-Please Comment; Pitocin Drip 20 Units/1000ml NSS Estimated Blood Loss (ml): 500 Maternal Complications: None LABOR SUMMARY EDC: 05/13/2016 00:00 No. Babies in Womb: 1 Attempted: No Labor Anesthesia: Epidural LABOR INFORMATION Reason for Induction: Maternal Diabetes Onset of Labor: 05/13/2016 08:30 Complete Dilatation: 05/13/2016 11:31 Oxytocin: Induction Group B Beta Strep: Negative Antibiotics # of Doses: 0 Steroids Given: None Reason Steroids Not Administered: Not Applicable MEMBRANES Membranes Rupture Method: Artificial Rupture of Membranes: 05/13/2016 08:35 Length of Rupture (hr): 3.42 Amniotic Fluid Color: Clear Amniotic Fluid Amount: Moderate Amniotic Fluid Odor: Normal STAGES OF LABOR Stage 1 hr: 3 Stage 1 min: 1 Stage 2 hr: 0 Stage 2 min: 29 Stage 3 hr: 0 Stage 3 min: 1 Total Time in Labor hr: 3 Total Time in Labor min: 31 VAGINAL DELIVERY Episiotomy: None Laceration Extension: First Degree Laceration Type: Vaginal Other Laceration: vaginal sidewall Laceration Repair: Yes CSECTION DELIVERY Primary Indication: Nonreassuring Status Secondary Indication: N/A CSection Urgency: Emergency CSection Incidence: Primary Labor: Labor Elective: N/A CSection Incision: Lower Uterine Transverse Sterilization Procedure: Ring and Clip BABY A INFORMATION Infant Delivery Date/Time: 05/13/2016 12:00 Method of Delivery: Born in Route : No : N/A Forceps: N/A Vacuum Extraction: N/A Shoulder Dystocia : No PRESENTATION/POSITION BABY A Presentation: Cephalic Cephalic Presentation: Vertex Breech Presentation: N/A PLACENTA INFORMATION BABY A Placenta Delivery Time : 05/13/2016 12:01 Placenta Method of Delivery: Manual Removal Placenta Status: Delivered SCORES BABY A Heart Rate 1 min: >100 bpm Resp Effort 1 min: Good Cry Reflex Irritability 1 min: Cough or Sneeze or Pulls Away Muscle Tone 1 min: Active Motion Color 1 min: Blue/Pale Resuscitation Effort 1 min: Tactile Stimulation SCORE 1 MIN: 8 Heart Rate 5 min: >100 bpm Resp Effort 5 min: Good Cry Reflex Irritability 5 min: Cough or Sneeze or Pulls Away Muscle Tone 5 min: Active Motion Color 5 min: Body [place], Extremities Blue Resuscitation Effort 5 min: N/A SCORE 5 MIN: 9 INFORMATION BABY A Gestational Age at Delivery: 40.0 Gestational Status: Full Term- 39- 40.6 Weeks Infant Outcome : Liveborn Infant Condition : Stable Sex: Male IDENTIFICATION BABY A Infant Verification Date/Time: 05/13/2016 12:02 ID Band Number: [id number] Mother's Name Verified: Yes RN Verifying : Genet SEEMA Torres Additional Verifying Personnel: Marysol Canada RN WEIGHT/LENGTH BABY A Birthweight (gm): 3550 Infant Weight (lb): 7 Weight (oz): 13 Infant Length (in): 21.00 Length (cm): 53.34 CORD INFORMATION BABY A Nuchal Cord : N/A Cord Blood Taken: Yes-For Eval (Mom's Blood Type - or O+) Infant Suction: Mouth; Nose ASSESSMENT BABY A Complications: Extended Bradycardia Physical Findings at Delivery: Puncture Wound from Scalp Electrode Infant Respirations: Appears Normal Skin to Skin: No Organ Tuner Electronic/ALS Called : No Infant Care By: Antony Asif RN Transferred To: Nursery BABY B INFORMATION : N/A
[2016-05-13] MEDS: DOCUSATE SODIUM 100 MG CAPSULE PO SCH (18:55)
--- NOTE | 2016-05-13 19:01 | L&D Flow Sheet ---
LD Flowsheet Datetime Report Generated by CPN: 05/13/2016 19:00 Datetime: 05/13/2016 15:19 Pulse: 86 (QS system process) SpO2 (%): 99 (QS system process) Datetime: 05/13/2016 15:14 Pulse: 84 (QS system process) SpO2 (%): 100 (QS system process) Datetime: 05/13/2016 15:09 NBP Sys/Kayla/Mean (mmHg): 107 (QS system process) : 67 (QS system process) : 82 (QS system process) Pulse: 93 (QS system process) Pulse: 89 (QS system process) SpO2 (%): 100 (QS system process) Datetime: 05/13/2016 15:04 Pulse: 99 (QS system process) SpO2 (%): 99 (QS system process) Datetime: 05/13/2016 15:00 Stage of : Recovery (Patricia Canada RN) Pain Scale: 5 (Patricia Canada RN) Pain Presence: Constant (aPtricia Canada RN) Pain Type: Burning; Cramping (Patricia Canada RN) Pain Location: Abdomen; Perineum (Patricia Canada RN) Pain Assessment Comments: Waiting for INCIDENT COORDINATOR pump medication to be ready from pharmacy (Patricia Canada RN) Datetime: 05/13/2016 14:59 Pulse: 122 (QS system process) SpO2 (%): 99 (QS system process) Datetime: 05/13/2016 14:54 NBP Sys/Kayla/Mean (mmHg): 109 (QS system process) : 70 (QS system process) : 83 (QS system process) Pulse: 92 (QS system process) Pulse: 91 (QS system process) SpO2 (%): 99 (QS system process) Datetime: 05/13/2016 14:49 Pulse: 87 (QS system process) SpO2 (%): 99 (QS system process) Datetime: 05/13/2016 14:45 Stage of : Recovery (Tasha Marhefka, RN) Datetime: 05/13/2016 14:44 Pulse: 102 (QS system process) SpO2 (%): 98 (QS system process) Datetime: 05/13/2016 14:39 NBP Sys/Kayla/Mean (mmHg): 100 (QS system process) : 55 (QS system process) : 73 (QS system process) Pulse: 105 (QS system process) Pulse: 103 (QS system process) SpO2 (%): 98 (QS system process) Datetime: 05/13/2016 14:34 Pulse: 97 (QS system process) SpO2 (%): 98 (QS system process) Datetime: 05/13/2016 14:30 Stage of : Recovery (Tasha Pearl RN) Pain Scale: 4 (Tasha Pearl RN) Pain Presence: Constant (Tasha Pearl RN) Pain Type: Burning; Ache (Tasha Pearl RN) Pain Location: Abdomen; Perineum (Tasha Pearl RN) Pain Goal: 0 (Tasha Pearl RN) Pain Relief Measures: Comfort Measures (Tasha Pearl RN) Datetime: 05/13/2016 14:29 Pulse: 113 (QS system process) SpO2 (%): 99 (QS system process) Datetime: 05/13/2016 14:25 NBP Sys/Kayla/Mean (mmHg): 96 (QS system process) : 51 (QS system process) : 69 (QS system process) Pulse: 109 (QS system process) Datetime: 05/13/2016 14:23 Pulse: 113 (QS system process) SpO2 (%): 98 (QS system process) Datetime: 05/13/2016 14:18 Pulse: 100 (QS system process) SpO2 (%): 100 (QS system process) Datetime: 05/13/2016 14:15 Stage of : Recovery (Patricia Canada, RN) Pain Scale: 5 (Patricia Canada, RN) Pain Presence: Constant (Patricia Canada, RN) Pain Type: Burning; Stabbing (Patricia Canada, RN) Pain Location: Perineum (Patricia Canada, RN) Datetime: 05/13/2016 14:13 Pulse: 100 (QS system process) SpO2 (%): 100 (QS system process) Datetime: 05/13/2016 14:09 NBP Sys/Kayla/Mean (mmHg): 107 (QS system process) : 69 (QS system process) : 83 (QS system process) Pulse: 120 (QS system process) Datetime: 05/13/2016 14:08 Pulse: 118 (QS system process) SpO2 (%): 98 (QS system process) Datetime: 05/13/2016 14:04 NBP Sys/Kayla/Mean (mmHg): 78 (QS system process) : 56 (QS system process) : 63 (QS system process) Pulse: 101 (QS system process) Datetime: 05/13/2016 14:03 Pulse: 96 (QS system process) SpO2 (%): 97 (QS system process) Datetime: 05/13/2016 14:00 Stage of : Recovery (Patricia Canada RN) Respirations: 16 (Patricia Canada RN) Temperature (F): 97.4 (Patricia Canada RN) Temperature (C): 36.3 (QS system process) Pain Scale: 5 (Patricia Canada RN) Pain Presence: Constant (Patricia Canada RN) Pain Type: Burning; Stabbing (Patricia Canada RN) Pain Location: Perineum (Patricia Canada RN) Pain Assessment Comments: INCIDENT COORDINATOR pump still unavailable from pharamcy (Patricia Canada RN) Datetime: 05/13/2016 13:59 NBP Sys/Kayla/Mean (mmHg): 75 (QS system process) : 52 (QS system process) : 58 (QS system process) Pulse: 113 (QS system process) Datetime: 05/13/2016 13:58 Pulse: 112 (QS system process) SpO2 (%): 99 (QS system process) Datetime: 05/13/2016 13:54 NBP Sys/Kayla/Mean (mmHg): 80 (QS system process) : 52 (QS system process) : 62 (QS system process) Pulse: 90 (QS system process) Datetime: 05/13/2016 13:53 Pulse: 91 (QS system process) SpO2 (%): 98 (QS system process) Datetime: 05/13/2016 13:49 NBP Sys/Kayla/Mean (mmHg): 82 (QS system process) : 51 (QS system process) : 61 (QS system process) Pulse: 98 (QS system process) Datetime: 05/13/2016 13:48 Pulse: 97 (QS system process) SpO2 (%): 98 (QS system process) Datetime: 05/13/2016 13:45 Stage of : Recovery (Patricia Canada, RN) Pain Scale: 5 (Patricia Canada, RN) Pain Presence: Constant (Patricia Canada, RN) Pain Type: Burning; Stabbing (Patricia Canada, RN) Pain Location: Abdomen; Perineum (Patricia Canada, RN) Datetime: 05/13/2016 13:44 NBP Sys/Kayla/Mean (mmHg): 81 (QS system process) : 51 (QS system process) : 61 (QS system process) Pulse: 97 (QS system process) Datetime: 05/13/2016 13:43 Pulse: 97 (QS system process) SpO2 (%): 96 (QS system process) Datetime: 05/13/2016 13:39 NBP Sys/Kayla/Mean (mmHg): 84 (QS system process) : 49 (QS system process) : 62 (QS system process) Pulse: 97 (QS system process) Datetime: 05/13/2016 13:38 Pulse: 93 (QS system process) SpO2 (%): 97 (QS system process) Datetime: 05/13/2016 13:33 Pulse: 104 (QS system process) SpO2 (%): 96 (QS system process) Datetime: 05/13/2016 13:30 Stage of : Recovery (Patricia Canada RN) NBP Sys/Kayla/Mean (mmHg): 78 (QS system process) : 46 (QS system process) : 58 (QS system process) Pulse: 105 (QS system process) Respirations: 14 (Patricia Canada RN) Pain Scale: 5 (Patricia Canada RN) Pain Presence: Constant (Patricia Canada RN) Pain Type: Burning; Stabbing (Patricia Canada RN) Pain Location: Abdomen; Perineum (Patricia Canada RN) Pain Assessment Comments: Charge nurse attempting to talk with pharmacy about INCIDENT COORDINATOR pump (Patricia Canada RN) Datetime: 05/13/2016 13:28 Pulse: 110 (QS system process) SpO2 (%): 95 (QS system process) Datetime: 05/13/2016 13:24 NBP Sys/Kayla/Mean (mmHg): 77 (QS system process) : 41 (QS system process) : 53 (QS system process) Pulse: 109 (QS system process) Datetime: 05/13/2016 13:23 Pulse: 112 (QS system process) SpO2 (%): 94 (QS system process) Datetime: 05/13/2016 13:22 Stage of : Recovery (Patricia Canada, RN) Datetime: 05/13/2016 11:51 Communication Comments: Monitors removed for pt to be transported to OR (Patricia Canada, RN) Datetime: 05/13/2016 11:48 Pushing: Pt States too Tired to Push (Patricia Canada, RN) Pushing Position: Pushing with Contractions (Patricia Canada, RN) Pushing Progress: Ineffective Pushing (Patricia Canada, RN) Datetime: 05/13/2016 11:47 Stage 2 Comments: kiwi removed (Patricia Canada, RN) Datetime: 05/13/2016 11:45 Monitor Mode: External; Palpation (Patricia Canada RN) Frequency (min): 1-3 (Patricia Canada RN) Quality: Moderate (Patricia Canada RN) Duration (sec): 50-80 (Patricia Canada RN) Resting Tone (Palpate): Relaxed (Patricia Canada RN) Monitor Mode: External US (Patricia Canada RN) Comments: FHTs audible in 60s, not tracing on monitor. (Patricia Canada RN) Stage 2 Comments: Kiwi applied (Patricia Canada RN) Datetime: 05/13/2016 11:43 Comments: external monitors reapplied (Patricia Canada RN) Datetime: 05/13/2016 11:42 Stage 2 Comments: Dr Hodges attempting to apply forceps without success (Patricia Canada, RN) Datetime: 05/13/2016 11:40 Pitocin (milliunit): Pitocin Discontinued (Patricia Canada RN) Pushing: Coached on Pushing; Urge to Push (Patricia Canada RN) Pushing Position: Pushing with Contractions (Patricia Canada RN) Pushing Progress: Ineffective Pushing (Patricia Canada RN) Communication Comments: Dr Hodges at bedside (Patricia Canada RN) Datetime: 05/13/2016 11:35 Pitocin (milliunit): Pitocin Started (milliunits) @ 12 (Patricia Canada RN) Medication Comments: Restarted Pitocin per A Emmel CNM (Patricia Canada RN) Pushing: Coached on Pushing (Patricia Canada RN) Pushing Position: Pushing with Contractions (Patricia Canada RN) Pushing Progress: Ineffective Pushing (Patricia Canada RN) Datetime: 05/13/2016 11:34 NBP Sys/Kayla/Mean (mmHg): 135 (QS system process) : 71 (QS system process) : 97 (QS system process) Pulse: 116 (QS system process) I/O Interventions: Luque Discontinued (Patricia Canada RN) LaborFlag: Labor (QS system process) Datetime: 05/13/2016 11:32 Preparation for Delivery: Setup for Delivery (Patricia Canada, RN) Datetime: 05/13/2016 11:31 Dilatation (cm): 10.0 (Patricia Canada RN) Effacement (%): 100 (Patricia Canada RN) Station: 0 (Patricia Canada RN) Exam by: Marysol Ocasio CNM (Patricia Canada RN) Communication Comments: Provider and RN remain at bedside continuously assessing FHTs (Patricia Canada RN) Communication Comments: Marysol Ocasio CNM at bedside (Patricia Canada RN) Datetime: 05/13/2016 11:30 Monitor Mode: External; Palpation (Patricia Canada RN) Frequency (min): 1-3 (Patricia Canada RN) Quality: Moderate (Patricia Canada RN) Duration (sec): 60-80 (Patricia Canada RN) Resting Tone (Palpate): Relaxed (Patricia Canada RN) Monitor Mode: Internal Scalp Electrode (Patricia Canada RN) FHR Baseline Rate : 90 (Patricia Canada RN) Variability: Moderate 6-25 bpm (Patricia Canada RN) Accelerations: None (Patricia Canada RN) Decelerations: Late (Patricia Canada RN) Datetime: 05/13/2016 11:28 Patient Position/Activity: Right Lateral (Patricia Dread, RN) Datetime: 05/13/2016 11:24 NBP Sys/Kayla/Mean (mmHg): 109 (QS system process) : 66 (QS system process) : 83 (QS system process) Pulse: 82 (QS system process) Patient Care Comments: Fluid returned to 125ml/hr (Patricia Canada, RN) LaborFlag: Labor (QS system process) Datetime: 05/13/2016 11:23 Actions for Decelerations: Oxygen Applied (Patricia Canada, RN) Datetime: 05/13/2016 11:21 Monitor Interventions for FHR: FSE Applied (Patricia Canada, RN) Datetime: 05/13/2016 11:20 Patient Position/Activity: Left Lateral (Patricia Canada, RN) Datetime: 05/13/2016 11:19 NBP Sys/Kayla/Mean (mmHg): 111 (QS system process) : 64 (QS system process) : 82 (QS system process) Pulse: 86 (QS system process) Pitocin (milliunit): Pitocin Discontinued (Patricia Canada RN) Anesthesia Interventions Other: Ephedrine (Patricia Canada RN) Anesthesia Comments: 5mg (Patricia Canada RN) LaborFlag: Labor (QS system process) Datetime: 05/13/2016 11:17 Dilatation (cm): 6.5 (Patricia Canada RN) Effacement (%): 80 (Patricia Canada RN) Station: -1 (Patricia Canada RN) Exam by: Marysol Ocasio CNM (Particia Canada RN) Communication Comments: Marysol Ocasio CNM at bedside (Patricia Canada RN) Datetime: 05/13/2016 11:15 NBP Sys/Kayla/Mean (mmHg): 112 (QS system process) : 64 (QS system process) : 82 (QS system process) Pulse: 79 (QS system process) Monitor Mode: External (Patricia Canada RN) Frequency (min): 1-2 (Patricia Canada RN) Quality: Moderate (Patricia Canada RN) Duration (sec): 60-80 (Patricia Canada RN) Resting Tone (Palpate): Relaxed (Patricia Canada RN) Monitor Mode: External US (Patricia Canada RN) Variability: Moderate 6-25 bpm (Patricia Canada RN) Accelerations: None (Patricia Canada RN) Decelerations: Late (Patricia Canada RN) Actions for Decelerations: Provider Notified (Patricia Canada RN) Comments: FHTs 100s (Patricia Canada RN) Patient Position/Activity: Right Lateral (Patricia Canada RN) LaborFlag: Labor (QS system process) Datetime: 05/13/2016 11:13 Anesthesia Interventions Other: Ephedrine (Patricia Canada, RN) Anesthesia Comments: 5mg (Patricia Canada, RN) Datetime: 05/13/2016 11:12 Patient Position/Activity: Left Lateral (Patricia Canada, RN) Datetime: 05/13/2016 11:10 NBP Sys/Kayla/Mean (mmHg): 103 (QS system process) : 57 (QS system process) : 75 (QS system process) Pulse: 80 (QS system process) LaborFlag: Labor (QS system process) Datetime: 05/13/2016 11:07 I/O Interventions: Luque Cath Inserted (Patricia Canada, RN) Datetime: 05/13/2016 11:04 NBP Sys/Kayla/Mean (mmHg): 111 (QS system process) : 58 (QS system process) : 80 (QS system process) Pulse: 88 (QS system process) LaborFlag: Labor (QS system process) Datetime: 05/13/2016 11:03 NBP Sys/Kayla/Mean (mmHg): 113 (QS system process) : 56 (QS system process) : 79 (QS system process) Pulse: 86 (QS system process) LaborFlag: Labor (QS system process) Datetime: 05/13/2016 11:01 Epidural Procedure Other: Pump Started (Patricia Canada, RN) Datetime: 05/13/2016 11:00 NBP Sys/Kayla/Mean (mmHg): 102 (QS system process) : 58 (QS system process) : 78 (QS system process) Pulse: 88 (QS system process) Comments: pt sitting for epidural (Patricia Canada RN) LaborFlag: Labor (QS system process) Datetime: 05/13/2016 10:59 NBP Sys/Kayla/Mean (mmHg): 106 (QS system process) : 64 (QS system process) : 79 (QS system process) Pulse: 84 (QS system process) LaborFlag: Labor (QS system process) Datetime: 05/13/2016 10:58 Pulse: 95 (QS system process) SpO2 (%): 100 (QS system process) LaborFlag: Labor (QS system process) Datetime: 05/13/2016 10:57 NBP Sys/Kayla/Mean (mmHg): 116 (QS system process) : 81 (QS system process) : 95 (QS system process) Pulse: 96 (QS system process) Epidural Procedure: Cath Placed (Patricia Canada RN) Epidural Procedure: Test Dose (Patricia Canada RN) LaborFlag: Labor (QS system process) Datetime: 05/13/2016 10:53 Pulse: 71 (QS system process) SpO2 (%): 96 (QS system process) LaborFlag: Labor (QS system process) Datetime: 05/13/2016 10:49 Procedure Verify: Correct Patient Identity; Correct Side and Site are Marked; Accurate Procedure Consent Form; Agreement on Procedure to be Done; Correct Patient Position (Patricia Canada RN) Epidural Positioning: Sitting (Patricia Canada RN) Anesthesia Comments: Dr Fernandez at bedside (Patricia Canada RN) Datetime: 05/13/2016 10:48 NBP Sys/Kayla/Mean (mmHg): 110 (QS system process) : 64 (QS system process) : 81 (QS system process) Pulse: 81 (QS system process) Pulse: 83 (QS system process) SpO2 (%): 100 (QS system process) LaborFlag: Labor (QS system process) Datetime: 05/13/2016 10:45 Monitor Mode: External (Patricia Canada RN) Frequency (min): 1-3 (Patricia Canada RN) Quality: Mild/Moderate (Patricia Canada RN) Duration (sec): 50-80 (Patricia Canada RN) Resting Tone (Palpate): Relaxed (Patricia Canada RN) Monitor Mode: External US (Patricia Canada RN) Comments: unable to determine due to patient movement (Patricia Canada RN) Pitocin (milliunit): Pitocin Remains (milliunits) @ 12 (Patricia Canada RN) Datetime: 05/13/2016 10:43 Procedure Verify: Correct Patient Identity; Correct Side and Site are Marked; Accurate Procedure Consent Form; Agreement on Procedure to be Done; Correct Patient Position (Patricia Canada RN) Epidural Positioning: Sitting (Patricia Canada RN) Datetime: 05/13/2016 10:33 NBP Sys/Kayla/Mean (mmHg): 123 (QS system process) : 60 (QS system process) : 87 (QS system process) Pulse: 82 (QS system process) LaborFlag: Labor (QS system process) Datetime: 05/13/2016 10:30 Monitor Mode: External (Patricia Canada RN) Frequency (min): 1-3 (Patricia Canada RN) Quality: Moderate (Patricia Canada RN) Duration (sec): 50-80 (Patricia Canada RN) Resting Tone (Palpate): Relaxed (Patricia Canada RN) Monitor Mode: External US (Patricia Canada RN) FHR Baseline Rate : 125 (Patricia Canada RN) Variability: Moderate 6-25 bpm (Patricia Canada RN) Accelerations: 15X15 (Patricia Canada RN) Decelerations: None (Patricia Canada RN) Pitocin (milliunit): Pitocin Remains (milliunits) @ 12 (Patricia Canada RN) Datetime: 05/13/2016 10:24 IV/Blood Work: New IV Bag Hung (Patricia Canada, RN) Datetime: 05/13/2016 10:15 Monitor Mode: External (Patricia Canada RN) Frequency (min): 1-3 (Patricia Canada RN) Quality: Mild/Moderate (Patricia Canada RN) Duration (sec): 50-80 (Patricia Canada RN) Resting Tone (Palpate): Relaxed (Patricia Canada RN) Monitor Mode: External US (Patricia Canada RN) FHR Baseline Rate : 125 (Patricia aCnada RN) Variability: Moderate 6-25 bpm (Patricia Canada RN) Accelerations: 15X15 (Patricia Canada RN) Decelerations: None (Patricia Canada RN) Pitocin (milliunit): Pitocin Remains (milliunits) @ 12 (Patricia Canada RN) Datetime: 05/13/2016 10:03 NBP Sys/Kayla/Mean (mmHg): 92 (QS system process) : 53 (QS system process) : 69 (QS system process) Pulse: 78 (QS system process) LaborFlag: Labor (QS system process) Datetime: 05/13/2016 10:01 Pain Presence: Intermittent (Patricia Canada RN) Pain Type: Contraction (Patricia Canada RN) Pain Location: Abdomen; Back (Patricia Canada RN) Pain Coping: Breathing Through Contractions; Requesting Pain Medication or Epidural; Crying (Patricia Canada RN) IV/Blood Work: IV Bolus Started (Patricia Candaa RN) Comfort Measures: Breathing/Relaxation (Patricia Canada RN) Procedure Verify: Correct Patient Identity; Correct Side and Site are Marked; Accurate Procedure Consent Form; Agreement on Procedure to be Done (Patricia Canada RN) Anesthesia Plans: Epidural (Patricia Canada RN) LaborFlag: Labor (QS system process) Datetime: 05/13/2016 10:00 Monitor Mode: External (Patricia Canada, RN) Frequency (min): 1-3 (Patricia Canada, RN) Quality: Mild/Moderate (Patriciajuanita Canada, RN) Duration (sec): 40-80 (Patricia Canada, RN) Resting Tone (Palpate): Relaxed (Patricia Canada, RN) Monitor Mode: External US (Patricia Canada, RN) FHR Baseline Rate : 125 (Patricia Canada, RN) Variability: Moderate 6-25 bpm (Patriciajuanita Canada, RN) Accelerations: 15X15 (Patriciajuanita Canada, RN) Decelerations: None (Patricia Canada, RN) Pitocin (milliunit): Pitocin Remains (milliunits) @ 12 (Patricia Canada, RN) Datetime: 05/13/2016 09:49 Monitor Interventions for UA: [place] Adjusted (Patricia Dread, RN) Datetime: 05/13/2016 09:48 NBP Sys/Kayla/Mean (mmHg): 115 (QS system process) : 56 (QS system process) : 81 (QS system process) Pulse: 77 (QS system process) LaborFlag: Labor (QS system process) Datetime: 05/13/2016 09:45 Monitor Mode: External (Patricia Canada RN) Frequency (min): 2-4 (Patricia Canada RN) Quality: Mild/Moderate (Patricia Canada RN) Duration (sec): 60-90 (Patricia Canada RN) Duration Criteria: Less than Two 120 Second Contractions (Patricia Canada RN) Pattern: Normal: <= 5 Contractions in 10 Minutes (Patricia Canada RN) Resting Tone (Palpate): Relaxed (Patricia Canada RN) Monitor Mode: External US (Patricia Canada RN) FHR Baseline Rate : 125 (Patricia Canada RN) Variability: Moderate 6-25 bpm (Patricia Canada RN) Accelerations: 15X15 (Patricia Canada RN) Decelerations: None (Patricia Canada RN) Pitocin (milliunit): Pitocin Increased to (milliunits) @ 12 (Patricia Canada RN) Datetime: 05/13/2016 09:32 NBP Sys/Kayla/Mean (mmHg): 95 (QS system process) : 52 (QS system process) : 65 (QS system process) Pulse: 75 (QS system process) LaborFlag: Labor (QS system process) Datetime: 05/13/2016 09:30 Monitor Mode: External (Patricia Canada RN) Frequency (min): 2-4 (Patricia Canada RN) Quality: Mild/Moderate (Patricia Canada RN) Duration (sec): 60-90 (Patricia Canada RN) Resting Tone (Palpate): Relaxed (Patricia Canada RN) Monitor Mode: External US (Patricia Canada RN) FHR Baseline Rate : 125 (Patricia Canada RN) Variability: Moderate 6-25 bpm (Patricia Canada RN) Accelerations: 15X15 (Patricia Canada, RN) Decelerations: None (Patricia Canada RN) Pitocin (milliunit): Pitocin Increased to (milliunits) @ 10 (Patricia Canada RN) Datetime: 05/13/2016 09:18 NBP Sys/Kayla/Mean (mmHg): 106 (QS system process) : 63 (QS system process) : 78 (QS system process) Pulse: 74 (QS system process) LaborFlag: Labor (QS system process) Datetime: 05/13/2016 09:15 Monitor Mode: External (Patricia Canada RN) Frequency (min): 2-4 (Patricia Canada RN) Quality: Mild/Moderate (Patricia Canada RN) Duration (sec): 60-90 (Patricia Canada RN) Resting Tone (Palpate): Relaxed (Patricia Canada RN) Monitor Mode: External US (Patricia Canada RN) FHR Baseline Rate : 135 (Patricia Canada RN) Variability: Moderate 6-25 bpm (Patricia Canada RN) Accelerations: 15X15 (Patricia Canada, RN) Decelerations: None (Patricia Canada RN) Pitocin (milliunit): Pitocin Increased to (milliunits) @ 8 (Patricia Canada RN) Datetime: 05/13/2016 09:02 NBP Sys/Kayla/Mean (mmHg): 106 (QS system process) : 57 (QS system process) : 79 (QS system process) Pulse: 84 (QS system process) LaborFlag: Labor (QS system process) Datetime: 05/13/2016 09:00 Monitor Mode: External (Patricia Canada RN) Frequency (min): 2-5 (Patricia Canada RN) Quality: Mild (Patricia Canada RN) Duration (sec): 60-120 (Patricia Canada RN) Duration Criteria: Less than Two 120 Second Contractions (Patricia Canada RN) Pattern: Normal: <= 5 Contractions in 10 Minutes (Patricia Canada RN) Resting Tone (Palpate): Relaxed (Patricia Canada RN) Monitor Mode: External US (Patricia Canada RN) FHR Baseline Rate : 140 (Patricia Canada RN) Variability: Moderate 6-25 bpm (Patricia Canada RN) Accelerations: 15X15 (Patricia Canada RN) Decelerations: None (Patricia Canada RN) Pitocin (milliunit): Pitocin Increased to (milliunits) @ 6 (Patricia Canada RN) Datetime: 05/13/2016 08:45 Monitor Mode: External (Patricia Canada RN) Frequency (min): 3-6 (Patricia Canada RN) Quality: Mild (Patricia Canada RN) Duration (sec): 60-120 (Patricia Canada RN) Duration Criteria: Less than Two 120 Second Contractions (Patricia Canada RN) Pattern: Normal: <= 5 Contractions in 10 Minutes (Patricia Canada RN) Resting Tone (Palpate): Relaxed (Patricia Canada RN) Monitor Mode: External US (Patricia Canada RN) FHR Baseline Rate : 145 (Patricia Canada RN) Variability: Moderate 6-25 bpm (Patricia Canada RN) Accelerations: 15X15 (Patricia Canada RN) Decelerations: None (aPtricia Canada RN) Pitocin (milliunit): Pitocin Increased to (milliunits) @ 4 (Patricia Canada RN) Datetime: 05/13/2016 08:35 Dilatation (cm): 3.0 (Patricia Canada RN) Effacement (%): 80 (Patricia Canada RN) Station: -1 (Patricia Canada RN) Exam by: Marysol Ocasio CNM (Patricia Canada RN) Membrane Status: Ruptured (Patricia Canada RN) Membranes Rupture Method: Artificial (Patricia Canada RN) Amniotic Fluid Color: Clear (Patricia Canada RN) Amniotic Fluid Amount: Moderate (Patricia Canada RN) Datetime: 05/13/2016 08:33 Communication Comments: A. Emmel CNM at bedside (Patricia Canada RN) Datetime: 05/13/2016 08:30 Monitor Mode: External (Patricia Canada RN) Frequency (min): x1 (Patricia Canada RN) Quality: Mild (Patricia Canada RN) Duration (sec): 110 (Patricia Caanda RN) Duration Criteria: Less than Two 120 Second Contractions (Patricia Canada RN) Pattern: Normal: <= 5 Contractions in 10 Minutes (Patricia Canada RN) Resting Tone (Palpate): Relaxed (Patricia Canada RN) Monitor Mode: External US (Patricia Canada RN) FHR Baseline Rate : 125 (Patricia Canada RN) Variability: Moderate 6-25 bpm (Patricia Canada, RN) Accelerations: 15X15 (Patricia Canada, RN) Decelerations: None (Patricia Canada RN) Pitocin (milliunit): Pitocin Remains (milliunits) @ 2 (Patricia Canada RN) Datetime: 05/13/2016 08:20 Pitocin (milliunit): Pitocin Started (milliunits) @ 2; Pitocin 20 Units in 1000ml NS (Patricia Canada, RN) Datetime: 05/13/2016 08:15 Procedures: Consents Signed (Patricia Canada, RN) Datetime: 05/13/2016 08:12 Bedside Blood Glucose: 94 (QS system process) LaborFlag: Labor (QS system process) Datetime: 05/13/2016 08:09 Procedures: Labs Drawn (Patricia Canada, RN) Datetime: 05/13/2016 08:05 IV/Blood Work: IV Bolus Given ml @ 300 (Olamide Sam, RNC) Datetime: 05/13/2016 08:02 IV/Blood Work: IV Started; IV Bolus Started (Olamide Sam, RNC) Datetime: 05/13/2016 08:00 Monitor Mode: External (Patricia Canada, RN) Frequency (min): x1 (Patricia Canada, RN) Quality: Mild (Patriciajuanita Canada, RN) Duration (sec): 70 (Patriciajuanita Canada, RN) Resting Tone (Palpate): Relaxed (Patricia Canada, RN) Monitor Mode: External US (Patricia Canada, RN) FHR Baseline Rate : 130 (Patriciajuanita Canada, RN) Variability: Moderate 6-25 bpm (Patriciajuanita Canada, RN) Accelerations: 15X15 (Patriciajuanita Canada, RN) Decelerations: None (Patricia Dread, RN) Datetime: 05/13/2016 07:54 Communication Comments: Orders to start Pitocin and increase every 15 minutes per protocol per Dr. Hodges. Pt cervical exam 2-3/[address]/-[address] Hodges yesterday in office (Patricia aCnada RN) Datetime: 05/13/2016 07:46 Pain Scale: 0 (Patricia Canada RN) Pain Presence: None/Denies (Patricia Canada RN) Pain Type: N/A (Patricia Canada RN) Vaginal Bleeding: Normal Show (Patricia Canada RN) Level of Consciousness: Fully Conscious (Patricia Canada RN) DTR's/Clonus: DTRs 2+; No Clonus (Patricia Canada RN) Headache: Denies (Patricia Canada RN) Breath Sounds, Left: Clear and Equal (Patricia Canada RN) Breath Sounds, Right: Clear and Equal (Patricia Canada RN) Nausea/Vomiting: Denies (Ptaricia Canada RN) RUQ Epigastric Pain: Denies (Patricia Canada RN) Instructional Method: Verbal; Patient Instructed; Family/Support Person Instructed; Verbalized Understanding (Patricia Canada RN) Plan of Care: Plan of Care Discussed; Vaginal Delivery; Labor; Induction (Patricia Canada RN) Unit Routine: Nice to Room; Call Mckenzie; Bed; Waiting Areas; Handwashing; Monitoring; IV Pumps; Bathroom Privileges (Patricia Canada RN) LaborFlag: Labor (QS system process) Datetime: 05/13/2016 07:38 NBP Sys/Kayla/Mean (mmHg): 103 (QS system process) : 60 (QS system process) : 75 (QS system process) Pulse: 80 (QS system process) LaborFlag: Labor (QS system process) Datetime: 05/13/2016 07:37 Stage of : Labor (Particia Canada RN)
[2016-05-14] MEDS ORDERED: ZOLPIDEM TARTRATE 5 MG TABLET PO PRN (01:24)
[2016-05-14] MEDS ORDERED: HYDROMORPHONE HCL INJ/PF 2 MG/ML AMPULE IV PRN (01:25)
[2016-05-14] MEDS ORDERED: OXYCODONE-ACETAMINOPHEN 5-325 MG TABLET PO PRN (01:26)
[2016-05-14] MEDS: KETOROLAC TROMETHAMINE INJ/PF 30 MG/1 ML SDV IV SCH (05:21)
--- NOTE | 2016-05-14 06:01 | L&D Current Admission ---
Current Admit Datetime Report Generated by CPN: 05/14/2016 06:00 ADMISSION INFORMATION Current Admit Date/Time: 05/13/2016 07:45 (01/12/2016 03:48:Patricia Canada RN) Reason for Admission: Induction of Labor (01/12/2016 03:48:Patricia Canada RN) Chief Complaint: Scheduled Induction of Labor (05/13/2016 07:46:Patricia Canada RN) Medications During : Docusate Sodium (Colace); Ferrous Sulfate (Iron); Vitamin; Acetaminophen (Tylenol) (01/12/2016 03:48:Patricia Canada RN) EGA per Dates: 40.0 (01/12/2016 03:48:QS system process) Method of Arrival: Ambulatory (01/12/2016 03:48:Patricia Canada RN) Admitted From: Home (01/12/2016 03:48:Patricia Canada RN) Reason for Induction: Maternal Diabetes (01/12/2016 03:48:Patricia Canada RN) Records Available: Yes (01/12/2016 03:48:Patricia Canada RN) General Admission Information: Reviewed (01/12/2016 03:48:Patricia Canada RN) General Admission Reviewed By: Marysol Canada RN (01/12/2016 03:48:Patricia Canada RN) BELONGINGS/ADVANCED DIRECTIVES Other Belongings: see consents (01/12/2016 03:48:Patricia Canada RN) Disposition of Belongings: Kept with Patient (01/12/2016 03:48:Patricia Canada RN) Advance Direct for Healthcare: No, and Wants No Information (01/12/2016 03:48:Patricia Canada RN) Durable Power of Car Coupler: No (01/12/2016 03:48:Patricia Canada RN) Living Will: No (01/12/2016 03:48:Patricia Canada RN) Organ Donor: Yes (01/12/2016 03:48:Patricia Canada RN) Pt Rights Information Given: Yes (01/12/2016 03:48:Patricia Canada RN) Pt Understands Pt Rights: Yes (01/12/2016 03:48:Patricia Canada RN) LEARNING ASSESSMENT Knowledge Level: Understands L_D Process; Understands Care Activities; Had Pre-Hospital Education; Understands Diagnosis (01/12/2016 03:48:Patricia Canada RN) Barriers to Learning: None (01/12/2016 03:48:Patricia Canada RN) Learning Readiness: Motivated (01/12/2016 03:48:Patricia Canada RN) Learns Best By: 1 to 1 Instruction; Demonstration (01/12/2016 03:48:Patricia Canada RN) Learning Needs: Labor and Delivery Process; Pain Management; Symptoms to Report; Treatment Plan; Medication; Diagnosis; Nutrition; Equipment; Infant Care; Community Resources (01/12/2016 03:48:Patricia Canada RN) DOMESTIC VIOLANCE SCREENING Dom Viol Threatened/Hurt: No (01/12/2016 03:48:Patricia Canada RN) Hx of Abuse/Neglect past 2yrs: No (01/12/2016 03:48:Patricia Canada RN) Feel Unsafe Going Home: No (01/12/2016 03:48:Patricia Canada RN) Addt'l Observ Indicating Abuse: No (01/12/2016 03:48:Patricia Canada RN) Reason Unable to Complete Screen: N/A, Screen Completed (01/12/2016 03:48:Patricia Canada RN) Considered Personal Harm/Suicide: No (01/12/2016 03:48:Patricia Canada RN) NUTRITIONAL/FUNCTIONAL SCREENING Problem with Appetite >5 Days: No (01/12/2016 03:48:Patricia Canada RN) Chew/Swallow Difficulties: No (01/12/2016 03:48:Patricia Canada RN) Inappropriate Wt Gain/Loss: No (01/12/2016 03:48:Patricia Canada RN) Presence Skin Breakdown/Ulcer: No (01/12/2016 03:48:Patricia Canada RN) Special Diet: No (01/12/2016 03:48:Patricia Canada RN) Pt Requests Service Order Dispatcher Chief Visit: No (01/12/2016 03:48:Patricia Canada RN) Hx of Any of the Following?: N/A (01/12/2016 03:48:Patricia Canada RN) New Diagnosis of: N/A (01/12/2016 03:48:Patricia Canada RN) Requires Assist w/Ambulation: No (01/12/2016 03:48:Patricia Canada RN) Uses Assist Device to Ambulate: No (01/12/2016 03:48:Patricia Canada RN) Pt Requires Help w/ADL's: No (01/12/2016 03:48:Patricia Canada RN)
--- NOTE | 2016-05-14 06:01 | L&D General Admission ---
General Admit Datetime Report Generated by CPN: 05/14/2016 06:00 INFORMATION Patient Age: 23 (04/11/2014 12:02:QS system process) EDC: 05/13/2016 00:00 (01/12/2016 03:44:Patricia Canada RN) : 3 (01/12/2016 03:44:Divina Orourke RN) Para: 2 (05/05/2016 17:30:Divina Orourke RN) Term: 2 (01/12/2016 03:44:Divina Orourke RN) : 0 (01/12/2016 03:44:Divina Orourke RN) Spontaneous Abortions: 0 (01/12/2016 03:44:Divina Orourke RN) Induced Abortions: 0 (01/12/2016 03:44:Divina Orourke RN) Livin (01/12/2016 03:44:Divina Orourke RN) Cesareans: 0 (01/12/2016 03:44:Divina Orourke RN) VBACs: 0 (01/12/2016 03:44:Divina Orourke RN) Ectopic: 0 (01/12/2016 03:44:Divina Orourke RN) Multiple Births: 0 (01/12/2016 03:44:Divina Orourke RN) Baby, Number in Womb: 1 (05/05/2016 17:30:Tamiko Vasquez RN) CARE Primary Card Writer Hand: [facility] (01/12/2016 03:44:Tasha Pearl RN) Adequate Care: No (01/12/2016 03:44:Divina Orourke RN) Prepregnancy Weight (lb): 126 (01/12/2016 03:44:Patricia Canada RN) Prepregnancy Weight (kg): 57.3 (01/12/2016 03:44:QS system process) Height (in): 63 (05/13/2016 16:03:QS system process) ALLERGIES Medication Allergy: Yes (01/12/2016 03:44:Divina Orourke RN) Medication Allergies: hydrocodone (05/13/2016); clonazepam (05/13/2016); hydrocortisone/MO/Rash (05/13/2016) (05/13/2016 07:52:QS system process) Latex Allergy: No Latex Allergies (01/12/2016 03:44:Tasha Pearl RN) COMMUNICATION Primary Language: Iranian (01/12/2016 03:44:Divina Orourke RN) Medical Tx Preferred Language: Iranian (01/12/2016 03:44:Divina Orourke RN) Communication Barrier(s): None (01/12/2016 03:44:Divina Orourke RN) DEMOGRAPHICS Address: [address] [place] [id number] (01/12/2016 03:14:QS system process) Zipcode: [id number] (01/12/2016 03:14:QS system process) Home (03/23/2016 15:05:QS system process) Work (06/13/2015 18:02:QS system process) N: [id number] (04/11/2014 12:02:QS system process) Next of Kin Name: DEO MEZA (04/11/2014 12:02:QS system process) Next of Kin (04/11/2014 12:02:QS system process) Next of Kin Relationship: MO (04/11/2014 12:02:QS system process) Date of : 1990 (04/11/2014 12:02:QS system process) Marital Status: Single (04/11/2014 12:02:QS system process) Sex: Female (04/11/2014 12:02:QS system process) Race: (04/11/2014 12:02:QS system process) Ethnicity: Non- or (04/11/2014 12:02:QS system process) Samaritan: None (04/11/2014 12:02:QS system process) DRUG AND ALCOHOL USE Alcohol: No (01/12/2016 03:44:Patricia Canada RN) Cigarettes: Former Smoker. [id number] (01/12/2016 03:44:Patricia Canada RN) Marijuana: No (01/12/2016 03:44:Patricia Canada RN) Cocaine: No (01/12/2016 03:44:Patricia Canada RN) Other Illicit Drugs: Yes (01/12/2016 03:44:Patricia Canada RN) Other Illicit Drug Comments: Pt abused drugs at beginning of (meth, adderall, xanax) (01/12/2016 03:44:Patricia Canada RN) VACCINE HISTORY Influenza Vaccine: Yes (01/12/2016 03:44:Patricia Canada RN) Pneumococcal Vaccine: No (01/12/2016 03:44:Patricia Canada RN) Tetanus Vaccine: Yes (01/12/2016 03:44:Patricia Canada RN) Tdap Vaccine: Yes (01/12/2016 03:44:Patricia Canada RN) Hepatitis B Vaccine: Yes (01/12/2016 03:44:Patricia Canada RN) Pharmacy Assistant: [facility] (01/12/2016 03:44:Patricia Canada RN) Feeding Preference: Breast (01/12/2016 03:44:Patricia Canada RN) Benefit of Breast Feed Discussed: Yes (01/12/2016 03:44:Patricia Canada RN) Circumcision: Yes (01/12/2016 03:44:Patriica Canada RN) Classes Attended: No (01/12/2016 03:44:Patricia Canada RN) Tubal Ligation: Yes (01/12/2016 03:44:Patricia Canada RN) Tubal Authorization Signed: Yes (01/12/2016 03:44:Patricia Canada RN) Consent: N/A (01/12/2016 03:44:Patricia Canada RN) Consent Signed: N/A (01/12/2016 03:44:Patricia Canada RN) Pain Management Plans: Epidural (01/12/2016 03:44:Patricia Canada RN) Plans for Labor and Delivery: None (01/12/2016 03:44:Patricia Canada RN) Support Person: Cesar Meza (01/12/2016 03:44:Patricia Canada RN) Support Person Relationship: Mother (01/12/2016 03:44:Patricia Canada RN) Cultural/Spritual Practice: No (01/12/2016 03:44:Patricia Canada RN) Spir/Cult Dietary Needs: No (01/12/2016 03:44:Patricia Canada RN) LIVING SITUATION/DISCHARGE PLAN Living Arrangements: House (01/12/2016 03:44:Patricia Canada RN) Adequate Access to:: Electric; Heat; Refrigeration; Plumbing/Running water; Phone; Transportation (01/12/2016 03:44:Patricia Canada RN) WIC Program: Yes (01/12/2016 03:44:Patricia Canada RN) Discharge Farmworker Poultry Person: Cesar (01/12/2016 03:44:Patricia Canada RN) Person to Help after Discharge: Cesar (01/12/2016 03:44:Patricia Canada RN) Currently Using Commun Resources: Yes (01/12/2016 03:44:Patricia Canada RN) Specify Current Resource Used: medicaid (01/12/2016 03:44:Patricia Canada RN) Outside Agency/Pouch Making Machine Operator: No (01/12/2016 03:44:Patricia Canada RN) Car Seat for Discharge: Yes (01/12/2016 03:44:Patricia Canada RN) Adoption Requested: No (01/12/2016 03:44:Patricia Canada RN) Pt Contact w/ Post : N/A (01/12/2016 03:44:Patricia Canada RN) LABS Blood Type: O Positive (01/12/2016 03:44:Divina Orourke RN) Antibody Screen: Negative (01/12/2016 03:44:Divina Orourke RN) Rho(G) this : Not Applicable (01/12/2016 03:44:Divina Orourke RN) Hemoglobin: 8.5 L (05/13/2016 08:07:QS system process) Hematocrit: 26.3 L (05/13/2016 08:07:QS system process) MCV: 75 L (05/13/2016 08:07:QS system process) Group Beta Strep: Negative (01/12/2016 03:44:Divina Orourke RN) Gonorrhea: Negative (01/12/2016 03:44:Divina Orourke RN) Chlamydia: Negative (01/12/2016 03:44:Divina Orourke RN) RPR/VDRL: Nonreactive (01/12/2016 03:44:Divina Orourke RN) HIV Results: NEGATIVE (05/14/2016 06:01:QS system process) Hepatitis B: Negative (01/12/2016 03:44:Divina Orourke RN) Rubella: Non-Immune (01/12/2016 04:17:Divina Orourke RN) Rubella Titer: 6.13 (01/12/2016 04:17:QS system process) Varicella: Non Susceptible (01/12/2016 03:44:Divina Orourke RN) OB/PREVIOUS HISTORY Previous Procedures: Ultrasound; NST (01/12/2016 03:44:Patricia Canada RN) Current Procedures: Ultrasound; NST (01/12/2016 03:44:Patricia Canada RN) History of Previous : No (01/12/2016 03:44:Patricia Canada RN) History of Gestational Diabetes: Yes (01/12/2016 03:44:Patricia Canada RN) History of PIH: No (01/12/2016 03:44:Patricia Canada RN) History of Incompetent Cervix: No (01/12/2016 03:44:Patricia Canada RN) History of Placenta Previa/Abrup: No (01/12/2016 03:44:Patricia Canada RN) History of Macrosomia: No (01/12/2016 03:44:Patricia Canada RN) History of IUGR: No (01/12/2016 03:44:Patricia Canada RN) History of Hemorrhage: No (01/12/2016 03:44:Patricia Canada RN) History of Loss/Stillborn: No (01/12/2016 03:44:Patricia Canada RN) History of : No (01/12/2016 03:44:Patricia Canada RN) History of D (Rh) Sensitization: No (01/12/2016 03:44:Patricia Canada RN) History Recurrent Loss/Stillborn: No (01/12/2016 03:44:Patricia Canada RN) History Depression/PP Depression: Yes (01/12/2016 03:44:Patricia Canada RN) History of Uterine Anomaly/PATRICK: No (01/12/2016 03:44:Patricia Cnaada RN) History of Infertility: No (01/12/2016 03:44:Patricia Canada RN) History of ART Treatment: No (01/12/2016 03:44:Patricia Canada RN) History of PATRICK: No (01/12/2016 03:44:Patricia Canada RN) Comments Obstetrical History: G1: 07/2008, G2: 01/2013 G3: current, GDM (01/12/2016 03:44:Patricia Canada RN) MEDICAL HISTORY Med Hx Diabetes: Yes (01/12/2016 03:44:Patricia Canada RN) Diabetes Type: Gestational Diabetes (01/12/2016 03:44:Patricia Canada RN) Med Hx Hypertension: No (01/12/2016 03:44:Patricia Canada RN) Med Hx Heart Disease: No (01/12/2016 03:44:Patricia Canada RN) Med Hx Autoimmune Disorder: No (01/12/2016 03:44:Patricia Canada RN) Med Hx Kidney Disease/UTI: No (01/12/2016 03:44:Patricia Canada RN) Med Hx Neurologic/Epilepsy: No (01/12/2016 03:44:Patricia Canada RN) Med Hx Psychiatric Disorders: No (01/12/2016 03:44:Patricia Canada RN) Med Hx Hepatitis/Liver Disease: No (01/12/2016 03:44:Patricia Canada RN) Med Hx Varicosities/Phlebitis: No (01/12/2016 03:44:Patricia Canada RN) Med Hx Thyroid Dysfunction: No (01/12/2016 03:44:Patricia Canada RN) Med Hx Trauma/Violence: No (01/12/2016 03:44:Patricia Canada RN) Med Hx Blood Transfusion: No (01/12/2016 03:44:Patricia Canada RN) Med Hx Pulmonary (Asthma,TB): No (01/12/2016 03:44:Patricia Canada RN) Med Hx Breast: No (01/12/2016 03:44:Patricia Canada RN) Med Hx ELECTRIC CUTTER OPERATOR Surgery: No (01/12/2016 03:44:Patricia Canada RN) Med Hx Hospitalization/Surgery: Yes (01/12/2016 03:44:Patricia Canada RN) Med Hx Anesthetic Complications: No (01/12/2016 03:44:Patricia Canada RN) Med Hx Abnormal Pap Smear: Yes (01/12/2016 03:44:Patricia Canada RN) Other Medical Diseases: No (01/12/2016 03:44:Patricia Canada RN) Med Hx Significant Family Hx: No (01/12/2016 03:44:Patricia Canada RN) Details of Med/Surg Hx: LEEP 2011, drug abuse summer 2015 (adderall, xanax, street drugs), depression, anxiety off meds in August 2015, former smoker (01/12/2016 03:44:Patricia Canada RN) INFECTIOUS HISTORY Inf Hx Gonorrhea: Yes (01/12/2016 03:44:Patricia Canada RN) Inf Hx Chlamydia: Yes (01/12/2016 03:44:Patricia Canada RN) Inf Hx Syphilis: No (01/12/2016 03:44:Patricia Canada RN) Inf Hx HIV/AIDS: No (01/12/2016 03:44:Patricia Canada RN) Inf Hx Human Papilloma Virus: Yes (01/12/2016 03:44:Patricia Canada RN) Inf Hx Pt/Partner Genital Herpes: No (01/12/2016 03:44:Patricia Canada RN) Inf Hx Tuberculosis/Exposure: No (01/12/2016 03:44:Patricia Canada RN) Inf Hx Hepatitis B,C: No (01/12/2016 03:44:Patricia Canada RN) Inf Hx Rash or Viral Illness: No (01/12/2016 03:44:Patricia Canada RN) Details of Infectious Hx: GC and Chlamydia treated during this (CORKY 03/23/16 negative), HPV 2011 (01/12/2016 03:44:Patricia Canada RN) GENETIC HISTORY Gen Hx Age >=35 at [place]: No (01/12/2016 03:44:Patricia Canada RN) Gen Hx Thalassemia: No (01/12/2016 03:44:Patricia Canada RN) Gen Hx Congenital Heart Defect: No (01/12/2016 03:44:Patricia Canada RN) Gen Hx Neural Tube Defect: No (01/12/2016 03:44:Patricia Canada RN) Gen Hx Down's Syndrome: No (01/12/2016 03:44:Patricia Canada RN) Gen Hx Simón-Sachs: No (01/12/2016 03:44:Patricia Canada RN) Gen Hx Selin: No (01/12/2016 03:44:Patricia Canada RN) Gen Hx Familial Dysautonomia: No (01/12/2016 03:44:Patricia Canada RN) Gen Hx Sickle Cell Disease/Trait: No (01/12/2016 03:44:Patricia Canada RN) Gen Hx Hemophilia/Blood Disorder: No (01/12/2016 03:44:Patricia Canada RN) Gen Hx Muscular Dystrophy: No (01/12/2016 03:44:Patricia Canada RN) Gen Hx Cystic Fibrosis: Yes (01/12/2016 03:44:Patricia Canada RN) Gen Hx Huntingtons Chorea: No (01/12/2016 03:44:Patricia Canada RN) Gen Hx Mental Retardation/Autism: No (01/12/2016 03:44:Patricia Canada RN) Gen Hx Tested for Fragile X: No (01/12/2016 03:44:Patricia Canada RN) Gen Hx Other Inher/Chromosomal: No (01/12/2016 03:44:Patricia Canada RN) Gen Hx Maternal Metabolic DO: No (01/12/2016 03:44:Patricia Canada RN) Gen Hx Pt Father or FOB Defect: No (01/12/2016 03:44:Patricia Canada RN) Gen Hx Other Genetic History: No (01/12/2016 03:44:Patricia Canada RN) Gen Hx Drugs/Meds since LMP: Yes (01/12/2016 03:44:Patricia Canada RN) Gen Hx Medications: PNV, iron, colace, sudafed, nyquil, tylenol (01/12/2016 03:44:Patricia Canada RN) Details of Genetic History: Brother has CF (01/12/2016 03:44:Patricia Canada RN)
--- NOTE | 2016-05-14 06:16 | L&D Care Plan ---
LD CARE PLANS Datetime Report Generated by CPN: 05/14/2016 06:15 Datetime: 05/13/2016 07:29 Pain State: Risk For (Tasha Pearl RN) Related To: Labor and Delivery Process; Complication(s) of ; Treatment and Procedures (Tasha Pearl RN) Goal(s): Patients Pain will be Assessed and Managed; Patient will Verbalize Adequate Relief of Pain or the Ability to [place] with Current Pain (Tasha Pearl RN) Interventions: Assess Pain Severity on Scale of 0 (None) to 5 (Severe); Assess Type, Location and Intensity of Pain Each Time Client Reports Discomfort and Notify Provider if Unusal Pain Develops; Encourage Proper Breathing and Relaxation Techniques; Offer Alternatives Such as Repositioning, Calm Environment, Massages, Diversional Activities, Ice Pack, Splinting, and Ambulation; Administer Analgesics as Ordered; Assist with Epidural Placement as Appropriate; Evaluate Therapeutic Effectiveness of Medication and Treatments (Tasha Pearl RN) Outcome: Patient will Report Absence or Relief of Pain Consistent with Established Pain Goal (Tasha Pearl RN) Status: Ongoing (Tasha Pearl RN) Outcome: Patient will have a Decrease in Signs and Symptoms of Discomfort (Tasha Pearl RN) Status: Ongoing (Tasha Pearl RN) Outcome: Pain will be Controlled During Procedures (Tasha Pearl RN) Status: Ongoing (Tasha Pearl RN) Anxiety State: Risk For (Tasha Pearl RN) Related To: Labor and Delivery Process; Fear of Unknown; Situational Crisis; Medical Interventions; Significant Life Event (Tasha Pearl RN) Goal(s): Patient will have Decreased Anxiety and be able to Function at Acceptable Levels (Tasha Pearl RN) Interventions: Assess Verbal and Nonverbal Behavioral Indicators of Anxiety; Assist Patient to Identify and Verbalize Symptoms of Anxiety; Identify and Demonstrate Techniques to Control Anxiety; Assist Patient with Coping Mechanisms to Manage Anxiety; Provide Theraputic Touch for the Patient; Explain to Patient, Using a Calm Reassuring Approach and Nonmedical Terms, All Activities, Procedures, and Concerns; Instruct Patient and Family about Post Discharge Care, Limitations, Symptoms to Report and Resources Available (Tasha Pearl RN) Outcome: Patient will Identify, Verbalize and Demonstrate Techniques to Control Anxiety (Tasha Pearl RN) Status: Ongoing (Tasha Pearl RN) Outcome: Patient's Posture, Facial Expressions, Gestures and Activity Level will Reflect Decreased Anxiety (Tasha Pearl RN) Status: Ongoing (Tasha Pearl RN) Outcome: Patient will Verbalize a Sense of Control and/or Acceptance of the Situation (Tasha Pearl RN) Status: Ongoing (Tasha Pearl RN) Outcome: Patient will Identify and Utilize Support Person (Tasha Pearl RN) Status: Ongoing (Tasha Pearl RN) Knowledge Deficit State: Risk For (Tasha Pearl RN) Related To: Labor and Delivery Process; Treatment and Procedures; Impending Alterations in Family Dynamics (Tasha Pearl RN) Goal(s): Patient will Accurately Verbalize Understanding of Plan of Care and Treatment; Patient and Family will Accurately Verbalize Understanding of the Disease Process (Tasha Pearl RN) Interventions: Assess Motivation and Willingness of Patient/Family to Learn; Assess Preferred Learning Mode: One to One Instruction, Reading, Videos, Group Discussion or Demonstration; Assess Barriers to Learning: Pain, Emotional State, Language Barrier, Cognitive Impairment, Visual or Hearing Deficits; Assess Patient and Family Knowledge of Disease Process, Medications and Treatment; Discuss Therapy and/or Treatment Options, Describe Rationale Behind Management, Therapy and Treatment Recommendations; Instruct Patient and Family on Signs and Symptoms to Report; Instruct Patient and Family on Medication Effects and Side Effects; Provide Appropriate and Timely Education Using Multiple Techniques; Provide Patient and Family with Support Group Information and Resources; Give Clear and Thorough Explanations and Demonstrations (Tasha Pearl RN) Outcome: Patient and Family will Verbalize Understanding of Condition, Treatment and Signs and Symptoms to Report (Tasha Pearl RN) Status: Ongoing (Tasha Pearl RN) Outcome: Patient will Identify Perceived Learning Needs and Express Motivation to Learn (Tasha Pearl RN) Status: Ongoing (Tasha Pearl RN) Outcome: Patient will Verbalize Understanding of Desired Content, and/or Performs Desired Skill Prior to Discharge (Tasha Pearl RN) Status: Ongoing (Tasha Pearl RN) Infection State: Risk For (Tasha Pearl RN) Related To: Prolonged Labor or Induction; Invasive Procedures; Altered Tissue Integrity (Tasha Pearl RN) Goal(s): The Patient will be Free of Infection, Vital Signs Stable and Lab Work within Normal Parameters (Tasha Pearl RN) Interventions: Instruct and Reinforce Proper Handwashing, Hygiene, and Care Techniques to Patient and Family; Monitor Vital Signs; Monitor Patient for the Following Signs of Infection: Fever, Abdominal Tenderness, Unusual Discharge; Monitor Aminiotic Fluid, Urine and Lochia for Color and Odor; Observe Wounds, Incisions and Invasive Line Sites for Redness, Drainage and Edema; Assess IV Sites per Hospital Policy; Monitor Lab and Test Results and Notify Provider of Abnormal Findings; Assess Nutritional Status and Promote Good Nutrition (Tasha Pearl RN) Outcome: Patient will Remain Free of Infection (Tasha Pearl RN) Status: Ongoing (Tasha Pearl RN) Outcome: Infection will be Recognized Early to Allow for Prompt Treatment (Tasha Pearl RN) Status: Ongoing (Tasha Pearl RN) Outcome: Patient will have Vital Signs Within Expected Range (Tasha Pearl RN) Status: Ongoing (Tasha Pearl RN) Impaired Skin Integrity State: Risk For (Tasha Pearl RN) Related To: Vaginal Delivery; Altered Tissue Integrity; Invasive Procedures (Tasha Pearl RN) Goal(s): Patient will Maintain Optimal Skin Integrity, Free of Breakdown, Injury or Infection (Tasha Pearl RN) Interventions: Complete Screening for Pressure Ulcer Risk and Initiate Protocol per Hospital Policy; Monitor Site of Skin Impairment for Color Changes, Redness, Swelling, Warmth, Pain or Other Signs of Infection; Encourage and Assist with Position Changes; Monitor Patient's Mobility Status; Provide Adequate Nutrition and Fluids; Teach Patient Appropriate Hygienic Care; Teach Patient/Family Skin Care Management (Tasha Pearl RN) Outcome: Patient will not have Evidence of Injury Such as Skin Breakdown, Scrapes, Cuts, or Bruising (Tasha Pearl RN) Status: Ongoing (Tasha Pearl RN) Outcome: Patient will Report Any Altered Sensation or Pain at Site of Skin Impairment (Tasha Pearl RN) Status: Ongoing (Tasha Pearl RN) Outcome: Patients Incisions and Wounds will be without Signs or Symptoms of Infection (Tasha Pearl RN) Status: Ongoing (Tasha Pearl RN) Outcome: Patient will Demonstrate Understanding of Plan to Heal Skin and Prevent Reinjury and Verbalize Risk Factors (Tasha Pearl RN) Status: Ongoing (Tasha Pearl RN) Datetime: 05/13/2016 07:25 Pain State: Risk For (Tasha Pearl RN) Related To: Labor and Delivery Process; Complication(s) of ; Treatment and Procedures (Tasha Pearl RN) Goal(s): Patients Pain will be Assessed and Managed; Patient will Verbalize Adequate Relief of Pain or the Ability to [place] with Current Pain (Tasha Pearl RN) Interventions: Assess Pain Severity on Scale of 0 (None) to 5 (Severe); Assess Type, Location and Intensity of Pain Each Time Client Reports Discomfort and Notify Provider if Unusal Pain Develops; Encourage Proper Breathing and Relaxation Techniques; Offer Alternatives Such as Repositioning, Calm Environment, Massages, Diversional Activities, Ice Pack, Splinting, and Ambulation; Administer Analgesics as Ordered; Assist with Epidural Placement as Appropriate; Evaluate Therapeutic Effectiveness of Medication and Treatments (Tasha Pearl RN) Outcome: Patient will Report Absence or Relief of Pain Consistent with Established Pain Goal (Tasha Pearl RN) Status: Ongoing (Tasha Pearl RN) Outcome: Patient will have a Decrease in Signs and Symptoms of Discomfort (Tasha Pearl RN) Status: Ongoing (Tasha Pearl RN) Outcome: Pain will be Controlled During Procedures (Tasha Pearl RN) Status: Ongoing (Tasah Pearl RN) Anxiety State: Risk For (Tasha Pearl RN) Related To: Labor and Delivery Process; Fear of Unknown; Situational Crisis; Medical Interventions; Significant Life Event (Tasha Pearl RN) Goal(s): Patient will have Decreased Anxiety and be able to Function at Acceptable Levels (Tasha Pearl RN) Interventions: Assess Verbal and Nonverbal Behavioral Indicators of Anxiety; Assist Patient to Identify and Verbalize Symptoms of Anxiety; Identify and Demonstrate Techniques to Control Anxiety; Assist Patient with Coping Mechanisms to Manage Anxiety; Provide Theraputic Touch for the Patient; Explain to Patient, Using a Calm Reassuring Approach and Nonmedical Terms, All Activities, Procedures, and Concerns; Instruct Patient and Family about Post Discharge Care, Limitations, Symptoms to Report and Resources Available (Tasha Pearl RN) Outcome: Patient will Identify, Verbalize and Demonstrate Techniques to Control Anxiety (Tasha Pearl RN) Status: Ongoing (Tasha Pearl RN) Outcome: Patient's Posture, Facial Expressions, Gestures and Activity Level will Reflect Decreased Anxiety (Tasha Pearl RN) Status: Ongoing (Tasha Pearl RN) Outcome: Patient will Verbalize a Sense of Control and/or Acceptance of the Situation (Tasha Pearl RN) Status: Ongoing (Tasha Pearl RN) Outcome: Patient will Identify and Utilize Support Person (Tasha Pearl RN) Status: Ongoing (Tasha Pearl RN) Knowledge Deficit State: Risk For (Tasha Pearl RN) Related To: Labor and Delivery Process; Treatment and Procedures; Impending Alterations in Family Dynamics (Tasha Pearl RN) Goal(s): Patient will Accurately Verbalize Understanding of Plan of Care and Treatment; Patient and Family will Accurately Verbalize Understanding of the Disease Process (Tasha Pearl RN) Interventions: Assess Motivation and Willingness of Patient/Family to Learn; Assess Preferred Learning Mode: One to One Instruction, Reading, Videos, Group Discussion or Demonstration; Assess Barriers to Learning: Pain, Emotional State, Language Barrier, Cognitive Impairment, Visual or Hearing Deficits; Assess Patient and Family Knowledge of Disease Process, Medications and Treatment; Discuss Therapy and/or Treatment Options, Describe Rationale Behind Management, Therapy and Treatment Recommendations; Instruct Patient and Family on Signs and Symptoms to Report; Instruct Patient and Family on Medication Effects and Side Effects; Provide Appropriate and Timely Education Using Multiple Techniques; Provide Patient and Family with Support Group Information and Resources; Give Clear and Thorough Explanations and Demonstrations (Tasha Pearl RN) Outcome: Patient and Family will Verbalize Understanding of Condition, Treatment and Signs and Symptoms to Report (Tasha Pearl RN) Status: Ongoing (Tasha Pearl RN) Outcome: Patient will Identify Perceived Learning Needs and Express Motivation to Learn (Tasha Pearl RN) Status: Ongoing (Tasha Pearl RN) Outcome: Patient will Verbalize Understanding of Desired Content, and/or Performs Desired Skill Prior to Discharge (Tasha Pearl RN) Status: Ongoing (Tasha Pearl RN) Infection State: Risk For (Tasha Pearl RN) Related To: Prolonged Labor or Induction; Invasive Procedures; Altered Tissue Integrity (Tasha Pearl RN) Goal(s): The Patient will be Free of Infection, Vital Signs Stable and Lab Work within Normal Parameters (Tasha Pearl RN) Interventions: Instruct and Reinforce Proper Handwashing, Hygiene, and Care Techniques to Patient and Family; Monitor Vital Signs; Monitor Patient for the Following Signs of Infection: Fever, Abdominal Tenderness, Unusual Discharge; Monitor Aminiotic Fluid, Urine and Lochia for Color and Odor; Observe Wounds, Incisions and Invasive Line Sites for Redness, Drainage and Edema; Assess IV Sites per Hospital Policy; Monitor Lab and Test Results and Notify Provider of Abnormal Findings; Assess Nutritional Status and Promote Good Nutrition (Tasha Pearl RN) Outcome: Patient will Remain Free of Infection (Tasha Pearl RN) Status: Ongoing (Tasha Pearl RN) Outcome: Infection will be Recognized Early to Allow for Prompt Treatment (Tasha Pearl RN) Status: Ongoing (Tasha Pearl RN) Outcome: Patient will have Vital Signs Within Expected Range (Tasha Pearl RN) Status: Ongoing (Tasha Pearl RN) Impaired Skin Integrity State: Risk For (Tasha Pearl RN) Related To: Vaginal Delivery; Altered Tissue Integrity; Invasive Procedures (Tasha Pearl RN) Goal(s): Patient will Maintain Optimal Skin Integrity, Free of Breakdown, Injury or Infection (Tasha Pearl RN) Interventions: Complete Screening for Pressure Ulcer Risk and Initiate Protocol per Hospital Policy; Monitor Site of Skin Impairment for Color Changes, Redness, Swelling, Warmth, Pain or Other Signs of Infection; Encourage and Assist with Position Changes; Monitor Patient's Mobility Status; Provide Adequate Nutrition and Fluids; Teach Patient Appropriate Hygienic Care; Teach Patient/Family Skin Care Management (Tasha Pearl RN) Outcome: Patient will not have Evidence of Injury Such as Skin Breakdown, Scrapes, Cuts, or Bruising (Tasha Pearl RN) Status: Ongoing (Tasha Pearl RN) Outcome: Patient will Report Any Altered Sensation or Pain at Site of Skin Impairment (Tasha Pearl RN) Status: Ongoing (Tasha Pearl RN) Outcome: Patients Incisions and Wounds will be without Signs or Symptoms of Infection (Tasha Pearl RN) Status: Ongoing (Tasha Pearl RN) Outcome: Patient will Demonstrate Understanding of Plan to Heal Skin and Prevent Reinjury and Verbalize Risk Factors (Tasha Pearl RN) Status: Ongoing (Tasha Pearl RN)
[2016-05-14 06:47] LABS: HEMATOCRIT 17.7 % (36.0-47.0); HGB HCT DIFFERENCE 0.3; MEAN CORPUSCULAR HEMOGLOBIN 25.3 pg (27.0-33.4); MEAN CORPUSCULAR HGB CONC 33.8 g/dL (32.0-36.0); MEAN CORPUSCULAR VOLUME 75 fl (80-97); RED BLOOD COUNT 2.36 10^6/uL (3.72-5.28); RED CELL DISTRIBUTION WIDTH 19.4 % (11.5-14.0); WHITE BLOOD COUNT 10.2 10^3/uL (4.0-10.5)
[2016-05-14] MEDS: OXYCODONE-ACETAMINOPHEN 5-325 MG TABLET PO PRN ×2 (07:26→17:30)
[2016-05-14] MEDS: PRENATAL VITAMIN W-O CA NO5/FE FUMARATE/FA CAPSULE PO SCH (09:28)
[2016-05-14] MEDS: DOCUSATE SODIUM 100 MG CAPSULE PO SCH ×2 (09:28→17:30)
--- NOTE | 2016-05-14 10:04 | PDOC PROGRESS REPORT ---
Subjective-OB Subjective: Post Delivery Day: 25 year old. Having some dizziness when changing position. Physical Exam (OB) Vital Signs: Temp Pulse Resp BP Pulse Ox 98.3 F 107 H 16 93/51 L 96 05/14/16 07:50 05/14/16 07:50 05/14/16 07:50 05/14/16 07:50 05/14/16 07:50 Pulse Oximeter Continuous Start: 05/13/16 17: 20 Freq: RTQ4 Status: Active Document 05/14/16 04:00 STI (Rec: 05/14/16 05:19 STI [id number]) Pulse Oximetry Assessment Oxygen Saturation (92-100) 98 Oxygen Delivery Method Room Air Fraction of Inspired Oxygen (FIO2) 21 Equipment Usage Equipment Standby Continuous SpO2 Machine # PEDS MONITOR Intake & Output 05/13/16 05/14/16 05/15/16 06:59 06:59 06:59 Output Total 2200 Balance -2200 Weight 63.85 kg - Dressing Removed: Yes Incision: Open, Well Approximated Closure Type: Surgical Glue - Lochia Lochia Amount: Small 10-25 ml Lochia Color: Rubra/Red - Abdomen Description: Tender, Soft, Round Hernia Present: No Bowel Sounds: Normoactive Flatus Presence: Absent Stool: No Fundal Description: Firm, Midline Fundal Height: u/u - u/2 Objective-Diagnostic Laboratory: 05/14/16 07:08 05/14/16 05/14/16 06:20 07:08 WBC 10.2 Cancelled RBC 2.36 L Cancelled Hgb 6.0 L D Cancelled Hct 17.7 L Cancelled MCV 75 L Cancelled MCH 25.3 L Cancelled MCHC 33.8 Cancelled RDW 19.4 H Cancelled Plt Count 233 Cancelled
[2016-05-14] MEDS ORDERED: NORMAL SALINE 250 ML IV PRN (10:06)
[2016-05-14] MEDS ORDERED: DIPHENHYDRAMINE HCL 25 MG CAPSULE ONE (11:21)
[2016-05-14] MEDS: IBUPROFEN 800 MG TABLET PO SCH ×3 (11:25→23:06)
[2016-05-14] MEDS: ACETAMINOPHEN 325 MG TABLET PO PRN ×2 (11:47→11:48)
[2016-05-14] MEDS: DIPHENHYDRAMINE HCL 50 MG CAPSULE PO PRN ×2 (11:47→11:48)
[2016-05-15] MEDS: IBUPROFEN 800 MG TABLET PO SCH ×2 (05:41→11:06)
[2016-05-15] MEDS: OXYCODONE-ACETAMINOPHEN 5-325 MG TABLET PO PRN (06:04)
[2016-05-15 07:40] LABS: HEMATOCRIT 23.8 % (36.0-47.0); HGB HCT DIFFERENCE 0.2; MEAN CORPUSCULAR HEMOGLOBIN 26.9 pg (27.0-33.4); MEAN CORPUSCULAR HGB CONC 33.6 g/dL (32.0-36.0); RED BLOOD COUNT 2.97 10^6/uL (3.72-5.28); RED CELL DISTRIBUTION WIDTH 20.8 % (11.5-14.0); WHITE BLOOD COUNT 9.9 10^3/uL (4.0-10.5)
[2016-05-15 07:55] LABS: MEAN CORPUSCULAR VOLUME 80 fl (80-97)
[2016-05-15 08:13] VITALS: BP 103/61
[2016-05-15] MEDS: PRENATAL VITAMIN W-O CA NO5/FE FUMARATE/FA CAPSULE PO SCH (09:04)
[2016-05-15] MEDS: DOCUSATE SODIUM 100 MG CAPSULE PO SCH (09:05)
--- NOTE | 2016-05-15 09:42 | PDOC PROGRESS REPORT ---
Subjective-OB Subjective: Post Delivery Day: 25 year old. Denies any needs at this time. Ready to go home. No further dizziness since blood transfusion. Physical Exam (OB) Vital Signs: Temp Pulse Resp BP Pulse Ox 98.0 F 96 16 103/61 97 05/15/16 08:18 05/15/16 08:18 05/15/16 08:18 05/15/16 08:18 05/15/16 08:18 Pulse Oximeter Continuous Start: 05/13/16 17: 20 Freq: RTQ4 Status: Complete Document 05/14/16 04:00 STI (Rec: 05/14/16 05:19 STI [id number]) Pulse Oximetry Assessment Oxygen Saturation (92-100) 98 Oxygen Delivery Method Room Air Fraction of Inspired Oxygen (FIO2) 21 Equipment Usage Equipment Standby Continuous SpO2 Machine # PEDS MONITOR Intake & Output 05/14/16 05/15/16 05/16/16 06:59 06:59 06:59 Intake Total 1320 Output Total 2200 Balance -2200 1320 Weight 63.85 kg - Dressing Removed: Yes Incision: Open, Well Approximated Closure Type: Surgical Glue - Lochia Lochia Amount: Scant < 10 ml Lochia Color: Rubra/Red - Abdomen Description: Tender, Soft, Round Hernia Present: No Bowel Sounds: Normoactive Flatus Presence: Present Stool: No Fundal Description: Firm, Midline Fundal Height: u/u - u/2 Objective-Diagnostic Laboratory: 05/15/16 06:46 05/13/16 05/13/16 05/15/16 08:07 08:07 06:46 WBC 5.6 9.9 RBC 3.50 L 2.97 L Hgb 8.5 L 8.0 L Hct 26.3 L 23.8 L MCV 75 L 80 D MCH 24.3 L 26.9 L MCHC 32.4 33.6 RDW 19.2 H 20.8 H Plt Count 249 264 Seg Neutrophils % 53.2 Lymphocytes % 34.3 Monocytes % 9.8 Eosinophils % 2.3 Basophils % 0.4 Absolute Neutrophils 3.0 Absolute Lymphocytes 1.9 Absolute Monocytes 0.5 Absolute Eosinophils 0.1 Absolute Basophils 0.0 Blood Type O POSITIVE Antibody Screen NEGATIVE
--- NOTE | 2016-05-15 09:51 | PDOC DISCHARGE SUMMARY ---
Final Diagnosis Discharge Date: 05/15/16 - Final Diagnosis (1) Anemia requiring transfusions Is this a current diagnosis for this admission?: Yes (2) Delivery by elective caesarean section Is this a current diagnosis for this admission?: Yes (3) History of anxiety and depression Is this a current diagnosis for this admission?: Yes (4) History of drug use in . Is this a current diagnosis for this admission?: Yes (5) Non-reassuring cardiotocographic tracing Is this a current diagnosis for this admission?: Yes (6) Is this a current diagnosis for this admission?: Yes (7) Smoker Is this a current diagnosis for this admission?: Yes Discharge Data - Discharge Medication Home Medications: Pnv No.122/Iron/Folic Acid [ Multi Tablet] 1 tab PO DAILY 05/05/16 Docusate Sodium [Colace 100 mg Capsule] 100 mg PO DAILY 05/13/16 Docusate Sodium [Colace 100 mg Capsule] 100 mg PO BID #30 capsule 05/15/16 Ferrous Sulfate [Iron] 325 mg PO BID #60 tablet 05/15/16 Ibuprofen [Motrin 800 mg Tablet] 800 mg PO Q6 #30 tablet 05/15/16 Oxycodone HCl/Acetaminophen [Percocet 5-325 mg Tablet] 1 tab PO Q4HP PRN #20 tablet 05/15/16 Gestational Age: 40.0 wks Reason(s) for Admission: Induction of Labor Intrapartum Procedure(s): : Low Cervical, Transverse - Data Baby 1 Male at 1 minute: 8 at 5 minutes: 9 Weight: 3.544 kg Home with Mother: Yes Complications: No - Diagnosis Test Laboratory: Temp Pulse Resp BP Pulse Ox 98.0 F 96 16 103/61 97 05/15/16 09:41 05/15/16 09:41 05/15/16 09:41 05/15/16 09:41 05/15/16 09:41 05/13/16 05/13/16 05/14/16 07:50 08:07 06:20 RBC 3.50 L 2.36 L Hgb 8.5 L 6.0 L D Hct 26.3 L 17.7 L Urine Opiates Screen NEGATIVE 05/14/16 05/15/16 07:08 06:46 RBC Cancelled 2.97 L Hgb Cancelled 8.0 L Hct Cancelled 23.8 L Urine Opiates Screen - Discharge information/Instructions Discharge Activity: Activity As Tolerated, Balance Activity w/Rest, No Driving, No Lifting Over 10 Pounds, No Lifting/Push/Pulling, Non-Ambulatory Child, Pelvic Rest, Slowly Increase Activity, No tub bath Discharge Diet: Regular Disposition: HOME, SELF-CARE Follow up with: [facility] in: 1, Weeks
--- NOTE | 2016-06-06 12:53 | Operative Report ---
Operative Report DATE OF SURGERY: 05/13/16 OPERATION: Primary Section with BTL ANESTHESIA: GA PROCEDURE: PREOPERATIVE DIAGNOSIS: undelivered at [40] weeks, GDM, Undesired Fertility, Bradycardia POSTOPERATIVE DIAGNOSIS: Same as above delivered Procedure: Primary Section and Bilateral Tubal Ligation with FIlschie Clips, Repair of vaginal sidewall lacerations. Unit Aide:[None] Anesthesia: Spinal Anesthesia provider: [Dr. Fernandez] Estimated blood loss: [500ml] Urine output: [100ml] IV fluids: [100ml, clear urine] Complications: [failed vaccum assisted vaginal delivery] Specimens: [placenta and cord] Findings: [VMI, apgars 8/9, weight 7#13oz, Time of 1200, In room at 1154, Start Time 1158. Left and right vaginal sidewall laceration repaired with good hemostasis. Normal Bilateral Tubes and ovaries. Filschie clips placed bilaterally for tubal Sterilization. Abdominal KUB done due to urgent section without instrument count which was normal without evidence of retained instruments. Indications: [25yo at 40+0ega admitted earlier this morning for IOL at 3cm for GDM. She had an uncomplicated IOL with pitocin and reached c/c/+2 dilation. The CNM (Emmel) was pushing with the patient due to variables and bradycardia occured without recovery despite position changes and maternal intrauterine resucitation efforts. Swenson Lukharts forceps placed but due to non articulation properly no force was applied with forceps. VAVD attempted with 2 maternal push/pulls with pop off times one. No descent with vaccum attempt. The patient was quickly consented for Urgent Section due to bradycardia. THe risks/benefits/alternatives reviewed and the patient agreed to urgent section. The patient had been previously consented for tubal sterilization and Title XX signed.] Procedure: The patient was taken to the operating room where General anesthesia was obtained due to not time enough to bolus non working epidural. She was then prepped and draped in the normal sterile fashion and placed in the dorsal supine position with a leftward tilt prior to general anesthesia obtained. A Pfannenstiel skin incision was then made and carried through to the underlying layers of the fascia with the scalpel. The fascia was incised in the midline and the incision extended laterally with the Narvaez scissors. The superior aspect of the fascial incision was then grasped with Mike clamps elevated and the underlying rectus muscles dissected off [bluntly]. Attention was then turned to the inferior aspect of the fascial incision which in a similar fashion was grasped, tented up with Nat clamps, and the rectus muscles dissected off [bluntly]. The rectus muscles were then in the midline and the peritoneum at the amount identified and entered [bluntly]. The peritoneal incision was then extended superiorly and inferiorly with good visualization of the bladder. The bladder blade was inserted and the vesicouterine peritoneum identified grasped with Macedonian pickups and entered sharply with the Metzenbaum scissors. This incision was then extended laterally with the Metzenbaum scissors and a bladder flap created digitally. The bladder blade was then reinserted and the lower uterine segment incised in a transverse fashion with the scalpel. The uterine incision was then extended bluntly. The bladder blade was removed and the infant's head was delivered from cephalic presentation atraumatically. The nose and mouth were suctioned and the cord doubly clamped and cut. And the infant was handed off to waiting pediatricians. The placenta was then delivered spontaneously and the uterus exteriorized and cleared of all clots and debris. The uterine incision was then repaired with 1- 0 Vicryl in a running locked fashion. A second layer of the same suture was used to obtain hemostasis via imbrication of the initial layer. The fallopian tube was followed out ot the fimbriated end and filschie clip was placed on the left in the ampullary portion. This was repeated on the patients right. The bladder flap was then repaired with 3-0 chromic in a running fashion. The uterus was returned to the patient's abdomen and Interceed was placed overlying the uterine incision to prevent adhesions. The gutters were cleared of all clots and debris. All operative sites were noted to be hemostatic. The fascia was reapproximated with 0 Vicryl in a running fashion from each lateral edge to the midline. The skin was closed with 3-0 Monocryl in a running subcuticular fashion with overlying Dermabond for additional dressing as well as wound closure. The vaginal sidewall lacerations were repaired with good hemostasis. The patient tolerated the procedure well. Sponge lap needle and instrument counts were unable to be obtained due to the urgent nature of the procedure and abdominal/pelvic XRAY performed. 2 g of Ancef were given prior to skin incision. The patient was taken to the recovery area awake and in stable condition.
== END 2016-05-15 12:02 | disposition home or self-care (01) | DRG 765 ==
LOC: LR 07:15 → 2S 15:20
PROVIDERS: ADMIT Student in an Organized Health Care Education/Training Program; ATTEND Student in an Organized Health Care Education/Training Program
PROC: 10D00Z1 Extraction of Products of Conception, Low, Open Approach (ICD-10-PCS; principal; 2016-05-13)
PROC: 0UL70CZ Occlusion of Bilateral Fallopian Tubes with Extraluminal Device, Open Approach (ICD-10-PCS; 2016-05-13)
PROC: 4A1HXCZ Monitoring of Products of Conception, Cardiac Rate, External Approach (ICD-10-PCS; 2016-05-13)
PROC: 30233N1 Transfusion of Nonautologous Red Blood Cells into Peripheral Vein, Percutaneous Approach (ICD-10-PCS; 2016-05-14)
DX: O76 Abnormality in fetal heart rate and rhythm complicating labor and delivery (principal); D62 Acute posthemorrhagic anemia; O66.5 Attempted application of vacuum extractor and forceps; O99.02 Anemia complicating childbirth; O24.429 Gestational diabetes mellitus in childbirth, unspecified control; O99.334 Smoking (tobacco) complicating childbirth; O99.344 Other mental disorders complicating childbirth; F41.9 Anxiety disorder, unspecified; F13.90 Sedative, hypnotic, or anxiolytic use, unspecified, uncomplicated; Z37.0 Single live birth; F32.9 Major depressive disorder, single episode, unspecified; Z3A.40 40 weeks gestation of pregnancy; Z30.2 Encounter for sterilization
CPT/HCPCS: 1961; 36415; 36430; 74000; 80307; 81005; 82962; 85025; 85027; 86592; 86850; 86900; 86901; 86920; 88307; 94760; 94799; J0330; J0690; J1170; J1885; J2405; J2590; J3010; J3490; J7120; P9016

== ENCOUNTER 2017-04-17 09:54 | Emergency (ER) | payer SELFPAY ==
--- NOTE | 2017-04-17 11:27 | ER Document Report ---
HPI - HPI Pain Level: 5 Notes: Patient is a 26-year-old female with no significant past medical history who presents the ED complaining of an abscess to her left axilla with surrounding redness. Patient states that when she was in the waiting room the abscess popped and started draining purulent discharge. Patient denies any history of MRSA or IV drug use. She denies any recent illness otherwise. The abscess began forming about 3-4 days ago. No other concerns or complaints at this time. Denies any headache, fever, neck pain, URI, sore throat, chest pain, palpitations, syncope, cough, shortness of breath, wheeze, dyspnea, abdominal pain, nausea/vomiting/diarrhea, urinary retention, dysuria, hematuria, muscle paralysis/weakness, or rash. - ROS Systems Reviewed and Negative: Yes All other systems reviewed and negative - CONSTITUTIONAL Constitutional: REPORTS: Chills - REPRODUCTIVE Reproductive: DENIES: : - MUSCULOSKELETAL Musculoskeletal: REPORTS: Extremity pain - left arm Past Medical History - Social History Smoking Status: Unknown if Ever Smoked Chew tobacco use (# tins/day): No Frequency of alcohol use: None Drug Abuse: None Family History: Reviewed & Not Pertinent Patient has suicidal ideation: No Patient has homicidal ideation: No Renal/ Medical History: Denies: Hx Ovarian Cysts, Hx Peritoneal Dialysis, Hx Pelvic Inflammatory Disease Malignancy Medical History: Denies: Hx Cervical Cancer, Hx Ovarian Cancer GI Medical History: Reports: Hx Irritable Bowel Psychiatric Medical History: Reports: Hx Attention Deficit Hyperactivity Disorder, Hx Depression - Immunizations Immunizations up to date: Yes Hx Diphtheria, Pertussis, Tetanus Vaccination: Yes Vertical Provider Document - CONSTITUTIONAL Agree With Documented VS: Yes Notes: PHYSICAL EXAMINATION: GENERAL: Well-appearing, well-nourished and in no acute distress. LUNGS: Breath sounds clear to auscultation bilaterally and equal. No wheezes rales or rhonchi. HEART: Regular rate and rhythm without murmurs, rubs, gallops. Musculoskeletal: UE's b/l: FROM to passive/active. Strength 5+/5. N/V intact distal. Extremities: No cyanosis, clubbing, or edema b/l. Peripheral pulses 2+. Capillary refill less than 3 seconds. NEUROLOGICAL: Normal speech, normal gait. Normal sensory, motor exams PSYCH: Normal mood, normal affect. SKIN: + abscess with surrounding cellulitis noted and marked with marker. + purulent discharge. + tenderness. - INFECTION CONTROL TRAVEL OUTSIDE OF THE [place] IN LAST 30 DAYS: No - RESPIRATORY O2 Sat by Pulse Oximetry: 100 Course - Re-evaluation Re-evalutation: 04/17/17 11:50 Patient is an afebrile, well-hydrated, 26-year-old female who presents the ED with an abscess and cellulitis to the left axilla area. Vitals are stable. PE is otherwise unremarkable. Incision and drainage performed successfully without any complications and packing was placed. Wound culture was obtained. Low suspicion for any necrotizing fasciitis, sepsis, meningitis, shock, or other systemic emergent condition at this time. Patient to monitor symptoms closely and seek medical attention with any acute changes. Wound was thoroughly irrigated and cleansed, procedure performed, wound dressing placed, and wound instructions reviewed. I will send her home with a prescription for Keflex and Bactrim to take as directed. Rocephin given IM today. Conservative measures otherwise for symptoms. Recheck with your PCM in 2-3 days for wound check or return to the ED if needed. Return to the ED with any worsening/ concerning symptoms otherwise as reviewed in discharge. Patient is in agreement. - Vital Signs Vital signs: Temp Pulse Resp BP Pulse Ox 98.5 F 84 16 102/72 100 04/17/17 10:05 04/17/17 10:05 04/17/17 10:05 04/17/17 10:05 04/17/17 10:05 Procedures - Incision and Drainage Left Arm Time completed: 11:45 Type: Simple Anesthetic type: 1% Lidocaine mL's of anesthetic: 3 Blade size: 11 I&D procedure: Iodoform packing placed, Sterile dressing applied, Other - chlorhexadine Incision Method: Incision made by scalpel Amount/type of drainage: moderate purulent Notes: 04/17/17 11:25 no complications pt tolerated proc well Discharge - Discharge Clinical Impression: Abscess Condition: Stable Disposition: HOME, SELF-CARE Instructions: Abscess ([facility]), Cephalexin ([facility]), Post Incision and Drainage, Trimethoprim-Sulfa ([facility]) Additional Instructions: Do not shower or bathe for 24 hours. After 24 hours she may shower but no submersion of the wound under water. Keep the original dressing on the wound for 24 hours unless the drainage soaks through. Change the dressing daily thereafter and use a small amount of triple antibiotic ointment over the open wound. Return to the ED and/or your PCM in 2-3 days for recheck and continue direction for wound packing. Monitor for any signs of worsening pain or redness , streaks, and/or fever. Return to the ED if noticing any of the above symptoms or as needed. Take medications as directed. Prescriptions: Cephalexin Monohydrate [Keflex 500 mg Capsule] 500 mg PO BID #20 capsule Sulfamethoxazole/Trimethoprim [Bactrim Ds Tablet] 1 each PO BID #20 tablet Referrals: [facility] [Provider Group] - Follow up as needed [facility] [Provider Group] - Follow up as needed MONICA JOHNSON MD [ACTIVE STAFF] - Follow up as needed
[2017-04-17] MEDS ORDERED: CEFTRIAXONE INJ 1000 MG VIAL IM ONE (11:28)
[2017-04-17] MEDS ORDERED: LIDOCAINE 1% INJ-PF (10 MG/ML) 30 ML SDV INJ ONE (11:28)
[2017-04-17] MEDS ORDERED: LIDOCAINE 1% INJ-PF (10 MG/ML) 30 ML SDV ONE (11:28)
[2017-04-17 12:33] VITALS: BP 105/63
== END 2017-04-17 12:36 | disposition home or self-care (01) ==
LOC: ER 09:54
DX: L02.412 Cutaneous abscess of left axilla (principal); R68.83 Chills (without fever); L03.112 Cellulitis of left axilla
CPT/HCPCS: 99283; 96372; 87070; 87205; 87077; 87186; 10060; A6266; J3490; J0696

== ENCOUNTER 2019-03-28 21:40 | Emergency (ER) | payer SELFPAY ==
[2019-03-28 23:57] LABS: APPEARANCE,URINE SLIGHTLY-CLOUDY; BILIRUBIN,URINE NEGATIVE (NEGATIVE); COLOR,URINE YELLOW; GLUCOSE, URINE NEGATIVE (NEGATIVE); KETONES,URINE NEGATIVE (NEGATIVE); LEUKOCYTE ESTERASE,URINE NEGATIVE (NEGATIVE); NITRITE,URINE POSITIVE (NEGATIVE); PROTEIN,URINE NEGATIVE (NEGATIVE); URINE SPECIFIC GRAVITY 1.012; UROBILINOGEN,URINE NEGATIVE mg/dL (<2.0)
--- NOTE | 2019-03-29 00:18 | RADIOLOGY REPORT (SQ) ---
CLINICAL HISTORY: abdominal pain; no BM x3 weeks COMPARISON: None. 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 There are no abnormal radiopaque foreign bodies or abnormal calcifications. Osseous structures are grossly unremarkable. IMPRESSION: Constipation.
[2019-03-29] MEDS ORDERED: CEPHALEXIN 500 MG CAPSULE PO ONE (02:52)
[2019-03-29] MEDS ORDERED: MAGNESIUM CITRATE 296 ML BOTTLE PO ONE (02:52)
--- NOTE | 2019-03-29 02:56 | ER Document Report ---
ED GI/ - General Chief Complaint: Constipation Stated Complaint: PAIN URINATING/BLOOD IN STOOL Time Seen by Provider: 03/29/19 02:38 Notes: Patient is a 28-year-old female that comes to the emergency department for chief complaint of lower abdominal pain and constipation. She states she thinks she also has a urinary tract infection. She has vague flank pain, denies nausea or vomiting, denies fever chills, denies vaginal discharge or bleeding. She also states that intermittently she will have some small amount of bright red blood with straining trying to have a bowel movement. She states she has not had a good bowel movement for weeks. She states she is used to the constipation and this is chronic but this is worse than usual. She takes no daily medications, has not tried any stool softeners, denies any surgeries except for a , denies any past medical history. TRAVEL OUTSIDE OF THE [place] IN LAST 30 DAYS: No - Related Data Allergies/Adverse Reactions: hydrocortisone [Hydrocortisone] Allergy (Intermediate, Verified 03/28/19 23:23) Rash hydrocodone Allergy (Verified 03/28/19 23:23) clonazepam [From Klonopin] Adverse Reaction (Verified 03/28/19 23:23) Past Medical History - General Information source: Patient - Social History Smoking Status: Former Smoker Frequency of alcohol use: Rare Drug Abuse: Marijuana Family History: Reviewed & Not Pertinent Patient has suicidal ideation: No Patient has homicidal ideation: No Renal/ Medical History: Denies: Hx Ovarian Cysts, Hx Peritoneal Dialysis, Hx Pelvic Inflammatory Disease Malignancy Medical History: Denies: Hx Cervical Cancer, Hx Ovarian Cancer GI Medical History: Reports: Hx Irritable Bowel Psychiatric Medical History: Reports: Hx Attention Deficit Hyperactivity Disorder, Hx Depression Past Surgical History: Reports: Hx Section - Immunizations Immunizations up to date: Yes Hx Diphtheria, Pertussis, Tetanus Vaccination: Yes Review of Systems - Review of Systems Constitutional: No symptoms reported EENT: No symptoms reported Cardiovascular: No symptoms reported Respiratory: No symptoms reported Gastrointestinal: See HPI Genitourinary: See HPI Female Genitourinary: No symptoms reported Musculoskeletal: No symptoms reported Skin: No symptoms reported Hematologic/Lymphatic: No symptoms reported Neurological/Psychological: No symptoms reported Physical Exam - Vital signs Vitals: Temp Pulse Resp BP Pulse Ox 98.8 F 94 20 105/62 98 03/28/19 21:46 03/28/19 21:46 03/28/19 21:46 03/28/19 21:46 03/28/19 21:46 - Notes Notes: GENERAL: Sleeping and easily aroused, well-appearing, interactive HEAD: Normocephalic, atraumatic. EYES: Pupils equal, round, and reactive to light. Extraocular movements intact. ENT: Oral mucosa moist, tongue midline. Oropharynx unremarkable. Airway patent. LUNGS: Clear to auscultation bilaterally, no wheezes, rales, or rhonchi. No respiratory distress. HEART: Regular rate and rhythm. No murmur ABDOMEN: Minimal generalized tenderness over the abdomen, there is slightly more suprapubic tenderness, remaining abdomen unremarkable. No guarding, rigidity, distention. Bowel sounds present. GENITOURINARY: Deferred EXTREMITIES: Moves all 4 extremities spontaneously. No edema, normal radial and dorsalis pedis pulses bilaterally. No cyanosis. BACK: no cervical, thoracic, lumbar midline tenderness. No saddle anesthesia, normal distal neurovascular exam. Moves all extremities in full range of motion. NEUROLOGICAL: Alert and oriented x3. Normal speech. Cranial nerves II through XII grossly intact. PSYCH: Normal affect, normal mood. SKIN: Warm, dry, normal turgor. No rashes or lesions noted. Course - Re-evaluation Re-evalutation: Urinalysis does show positive nitrites, otherwise unremarkable. test negative. KUB shows constipation on the right side of the colon, no obstruction. Patient has an unremarkable abdomen with some mild suprapubic tenderness, no rigidity, no guarding. She was sleeping and easily aroused when I entered the room. Vital signs unremarkable. She is talkative and well- appearing. She has no trouble with p.o. Very low suspicion of acute abdomen. Patient has no vaginal discharge. I did offer pelvic exam but this was declined. Treating for UTI, treating for constipation, discussed details, follow-up, return precautions. Patient states appreciation and agreement. Stable at time of discharge. - Vital Signs Vital signs: Temp Pulse Resp BP Pulse Ox 98.6 F 73 16 89/41 L 97 03/29/19 03:12 03/29/19 03:12 03/29/19 03:12 03/29/19 03:12 03/29/19 03:12 - Laboratory Laboratory results interpreted by me: 03/28/19 23:22 Urine Nitrite POSITIVE H Discharge - Discharge Clinical Impression: Abdominal pain Qualifiers: Abdominal location: generalized Qualified Code(s): R10.84 - Generalized abdominal pain Condition: Stable Disposition: HOME, SELF-CARE Additional Instructions: Your evaluation is consistent with a urinary tract infection and your imaging shows constipation on the right side of your abdomen. Because of this location I feel like an enema will not benefit you at this time, I do recommend the following: Drink 1/4 to 1/2 of the magnesium citrate, then if after several hours you do not have bowel movement results drink another 1/4 to half. You may need to take the colace stool softener for the next 2-4 days as well as prescribed. Take bentyl for cramping, Phenergan for nausea. Improve your diet - increased vegetables, fruits, fiber, and fluids are very helpful to clear your bowels. Avoid straining to reduce hemorrhoids and bleeding. Take the Keflex antibiotics as prescribed for the urinary tract infection. Follow-up with primary care for additional management. Return for any concerning symptoms including fever, vomiting, severe worsening pain, or any other concerning or worsening symptoms. Prescriptions: Dicyclomine HCl [Bentyl 20 mg Tablet] 20 mg PO QID PRN #20 tablet PRN Reason: Docusate Sodium [Colace 100 mg Capsule] 100 mg PO ASDIR PRN #30 capsule PRN Reason: Cephalexin Monohydrate [Keflex 500 mg Capsule] 500 mg PO BID 7 Days #14 capsule Promethazine HCl [Phenergan 25 mg Tablet] 25 mg PO Q6H PRN #15 tablet PRN Reason:
[2019-03-29 03:12] VITALS: BP 89/41
== END 2019-03-29 03:13 | disposition home or self-care (01) ==
LOC: ER 21:40
DX: R10.84 Generalized abdominal pain (principal); K59.00 Constipation, unspecified
CPT/HCPCS: 99283; 81025; 81001; 74018; J3490